=== PATIENT | male | born 1950 | race Caucasian/White ===

== ENCOUNTER 2020-02-24 13:00 | Outpatient (REF) | payer MEDICARE, SELFPAY | END 2020-02-24 13:01 | disposition home or self-care (01) | LOC: HO.BBR 13:00 | PROVIDERS: Visit Provider Internal Medicine Hematology & Oncology | DX: D45 Polycythemia vera (principal) | CPT/HCPCS: 85018 ==

== ENCOUNTER 2020-03-27 08:40 | Outpatient (REF) | payer MEDICARE, SELFPAY | END 2020-03-27 08:41 | disposition home or self-care (01) | LOC: HO.BBR 08:40 | PROVIDERS: Visit Provider Internal Medicine Hematology & Oncology | DX: D45 Polycythemia vera (principal) | CPT/HCPCS: 36415; 85018; 99195 ==

== ENCOUNTER 2020-04-24 08:04 | Outpatient (REF) | payer MEDICARE, SELFPAY | END 2020-04-24 08:05 | disposition home or self-care (01) | LOC: HO.BBR 08:04 | PROVIDERS: Visit Provider Internal Medicine Hematology & Oncology | DX: D45 Polycythemia vera (principal) | CPT/HCPCS: 36415; 85018; 99195 ==

== ENCOUNTER 2020-05-22 08:08 | Outpatient (REF) | payer MEDICARE, SELFPAY | END 2020-05-22 08:09 | disposition home or self-care (01) | LOC: HO.BBR 08:08 | PROVIDERS: Visit Provider Internal Medicine Hematology & Oncology | DX: D45 Polycythemia vera (principal) | CPT/HCPCS: 85018 ==

== ENCOUNTER 2020-06-20 09:12 | Outpatient (REF) | payer MEDICARE, SELFPAY | END 2020-06-20 09:13 | disposition home or self-care (01) | LOC: HO.BBR 09:12 | PROVIDERS: Visit Provider Internal Medicine Hematology & Oncology | DX: D45 Polycythemia vera (principal) | CPT/HCPCS: 85014; 85018; 99195 ==

== ENCOUNTER 2020-07-18 09:01 | Outpatient (REF) | payer MEDICARE, SELFPAY | END 2020-07-18 09:02 | disposition home or self-care (01) | LOC: HO.BBR 09:01 | PROVIDERS: Visit Provider Internal Medicine Hematology & Oncology | DX: D45 Polycythemia vera (principal) | CPT/HCPCS: 36415; 85018; 99195 ==

== ENCOUNTER 2020-08-15 09:18 | Outpatient (REF) | payer MEDICARE, SELFPAY | END 2020-08-15 09:19 | disposition home or self-care (01) | LOC: HO.BBR 09:18 | PROVIDERS: Visit Provider Internal Medicine Hematology & Oncology | DX: D45 Polycythemia vera (principal) | CPT/HCPCS: 36415; 85018 ==

== ENCOUNTER 2020-09-11 08:55 | Outpatient (REF) | payer MEDICARE, SELFPAY | END 2020-09-11 08:56 | disposition home or self-care (01) | LOC: HO.BBR 08:55 | PROVIDERS: Visit Provider Internal Medicine Hematology & Oncology | DX: D45 Polycythemia vera (principal) | CPT/HCPCS: 85014; 85018; 99195 ==

== ENCOUNTER 2020-10-10 09:07 | Outpatient (REF) | payer MEDICARE, SELFPAY | END 2020-10-10 09:08 | disposition home or self-care (01) | LOC: HO.BBR 09:07 | PROVIDERS: Visit Provider Internal Medicine Hematology & Oncology | DX: D45 Polycythemia vera (principal) | CPT/HCPCS: 85018; 99195 ==

== ENCOUNTER 2020-11-08 09:03 | Outpatient (REF) | payer MEDICARE, SELFPAY | END 2020-11-08 09:04 | disposition home or self-care (01) | LOC: HO.BBR 09:03 | PROVIDERS: Visit Provider Internal Medicine Hematology & Oncology | DX: D45 Polycythemia vera (principal) | CPT/HCPCS: 85014; 85018; 99195 ==

== ENCOUNTER 2020-12-07 09:08 | Outpatient (REF) | payer MEDICARE, SELFPAY | END 2020-12-07 09:09 | disposition home or self-care (01) | LOC: HO.BBR 09:08 | PROVIDERS: Visit Provider Internal Medicine Hematology & Oncology | DX: D45 Polycythemia vera (principal) | CPT/HCPCS: 85018; 99195 ==

== ENCOUNTER 2021-01-04 09:58 | Outpatient (REF) | payer MEDICARE, SELFPAY | END 2021-01-04 09:59 | disposition home or self-care (01) | LOC: HO.BBR 09:58 | PROVIDERS: Visit Provider Internal Medicine Hematology & Oncology | DX: D45 Polycythemia vera (principal) | CPT/HCPCS: 85018; 99195 ==

== ENCOUNTER 2021-02-14 08:58 | Outpatient (REF) | payer MEDICARE, SELFPAY | END 2021-02-14 08:59 | disposition home or self-care (01) | LOC: HO.BBR 08:58 | PROVIDERS: Visit Provider Internal Medicine Hematology & Oncology | DX: Z13.89 Encounter for screening for other disorder (principal) ==

== ENCOUNTER 2021-02-15 11:55 | Outpatient (REF) | payer MEDICARE, SELFPAY | END 2021-02-15 11:56 | disposition home or self-care (01) | LOC: HO.BBR 11:55 | PROVIDERS: Visit Provider Internal Medicine Hematology & Oncology | DX: D45 Polycythemia vera (principal) | CPT/HCPCS: 85018; 99195 ==

== ENCOUNTER 2021-03-15 10:01 | Outpatient (REF) | payer MEDICARE, SELFPAY | END 2021-03-15 10:02 | disposition home or self-care (01) | LOC: HO.BBR 10:01 | PROVIDERS: Visit Provider Internal Medicine Hematology & Oncology | DX: D45 Polycythemia vera (principal) | CPT/HCPCS: 85014; 85018; 99195 ==

== ENCOUNTER 2021-04-12 09:54 | Outpatient (REF) | payer MEDICARE, SELFPAY | END 2021-04-12 09:55 | disposition home or self-care (01) | LOC: HO.BBR 09:54 | PROVIDERS: Visit Provider Internal Medicine Hematology & Oncology | DX: D45 Polycythemia vera (principal) | CPT/HCPCS: 85018; 99195 ==

== ENCOUNTER 2021-05-10 10:04 | Outpatient (REF) | payer MEDICARE, SELFPAY ==
[2021-05-10 10:24] LABS: MANUAL DIFF FLAG NO
[2021-05-10 10:26] LABS: Basophils Absolute Auto 0.1 X10*3/uL (0.0-0.2); Basophils Percent Auto 1.1 % (0-2); Eosinophils Absolute Auto 0.2 X10*3/uL (0.0-0.4); Hematocrit 50.3 % (42.0-52.0); Hemoglobin 16.6 g/dl (14.0-18.0); Imm Gran Abs Auto 0.02 X10*3/uL (0.00-0.03); Imm Gran Pct Auto 0.3 % (0.0-0.4); Lymphocytes Absolute Auto 2.5 X10*3/uL (1.2-4.9); Lymphocytes Percent Auto 34.8 % (20-40); Mean Corpuscular Hemoglobin 25.7 pg (27.0-33.0); Mean Platelet Volume 9.3 fL (9.4-12.4); Neutrophils Absolute Auto 3.3 x10*3/uL (2.0-8.3); Neutrophils Percent Auto 46.8 % (45-73); Platelet Count 293 X10*3/uL (160-400); Red Blood Count 6.45 X10*6/uL (4.60-5.80); Red Cell Distribution Width 16.9 % (11.0-16.0); White Blood Count 7.1 X10*3/uL (4.8-10.8)
[2021-05-10 10:47] LABS: Iron 38 mcg/dL (45-160); Percent Iron Saturation 9 % (15-50); Total Iron Binding Capacity 425 mcg/dL (228-428); Unsaturated Iron Binding 387 ug/dL
[2021-05-10 11:07] LABS: Ferritin 17 ng/mL (20-250)
== END 2021-05-10 10:05 | disposition home or self-care (01) ==
LOC: HO.BBR 10:04
PROVIDERS: Visit Provider Internal Medicine Hematology & Oncology
DX: D45 Polycythemia vera (principal)
CPT/HCPCS: 36415; 82728; 83540; 85018; 85025; 99195

== ENCOUNTER 2021-06-08 08:57 | Outpatient (REF) | payer MEDICARE, SELFPAY | END 2021-06-08 08:58 | disposition home or self-care (01) | LOC: HO.BBR 08:57 | PROVIDERS: Visit Provider Internal Medicine Hematology & Oncology | DX: D45 Polycythemia vera (principal) | CPT/HCPCS: 85018; 99195 ==

== ENCOUNTER 2021-07-06 13:42 | Outpatient (REF) | payer MEDICARE, SELFPAY | END 2021-07-06 13:43 | disposition home or self-care (01) | LOC: HO.BBR 13:42 | PROVIDERS: Visit Provider Internal Medicine Hematology & Oncology | DX: D45 Polycythemia vera (principal) | CPT/HCPCS: 85018; 99195 ==

== ENCOUNTER 2021-08-03 08:58 | Outpatient (REF) | payer MEDICARE, SELFPAY | END 2021-08-03 08:59 | disposition home or self-care (01) | LOC: HO.BBR 08:58 | PROVIDERS: Visit Provider Internal Medicine Hematology & Oncology | DX: D45 Polycythemia vera (principal) | CPT/HCPCS: 85018; 99195 ==

== ENCOUNTER 2021-08-31 09:58 | Outpatient (REF) | payer MEDICARE, SELFPAY | END 2021-08-31 09:59 | disposition home or self-care (01) | LOC: HO.BBR 09:58 | PROVIDERS: Visit Provider Internal Medicine Hematology & Oncology | DX: D45 Polycythemia vera (principal) | CPT/HCPCS: 85018; 99195 ==

== ENCOUNTER 2021-09-28 14:01 | Outpatient (REF) | payer MEDICARE, SELFPAY | END 2021-09-28 14:02 | disposition home or self-care (01) | LOC: HO.BBR 14:01 | PROVIDERS: Visit Provider Internal Medicine Hematology & Oncology | DX: D45 Polycythemia vera (principal) | CPT/HCPCS: 85018 ==

== ENCOUNTER 2021-10-30 13:52 | Outpatient (REF) | payer MEDICARE, SELFPAY | END 2021-10-30 13:53 | disposition home or self-care (01) | LOC: HO.BBR 13:52 | PROVIDERS: Visit Provider Internal Medicine Hematology & Oncology | DX: D45 Polycythemia vera (principal) | CPT/HCPCS: 85018; 99195 ==

== ENCOUNTER 2021-11-28 08:08 | Outpatient (REF) | payer MEDICARE, SELFPAY | END 2021-11-28 08:09 | disposition home or self-care (01) | LOC: HO.BBR 08:08 | PROVIDERS: Visit Provider Internal Medicine Hematology & Oncology | DX: D45 Polycythemia vera (principal) | CPT/HCPCS: 85018; 99195 ==

== ENCOUNTER 2022-01-02 08:46 | Outpatient (REF) | payer MEDICARE, SELFPAY | END 2022-01-02 08:47 | disposition home or self-care (01) | LOC: HO.BBR 08:46 | PROVIDERS: Visit Provider Internal Medicine Hematology & Oncology | DX: D45 Polycythemia vera (principal) | CPT/HCPCS: 85014; 85018; 99195 ==

== ENCOUNTER 2022-01-30 09:05 | Outpatient (REF) | payer MEDICARE, SELFPAY | END 2022-01-30 09:06 | disposition home or self-care (01) | LOC: HO.BBR 09:05 | PROVIDERS: Visit Provider Internal Medicine Hematology & Oncology | DX: D45 Polycythemia vera (principal) | CPT/HCPCS: 85014; 85018; 99195 ==

== ENCOUNTER 2022-02-27 09:00 | Outpatient (REF) | payer MEDICARE, SELFPAY | END 2022-02-27 09:01 | disposition home or self-care (01) | LOC: HO.BBR 09:00 | PROVIDERS: Visit Provider Internal Medicine Hematology & Oncology | DX: D45 Polycythemia vera (principal) | CPT/HCPCS: 85018 ==

== ENCOUNTER 2022-03-27 08:45 | Outpatient (REF) | payer MEDICARE, SELFPAY | END 2022-03-27 08:46 | disposition home or self-care (01) | LOC: HO.BBR 08:45 | PROVIDERS: Visit Provider Internal Medicine Hematology & Oncology | DX: D45 Polycythemia vera (principal) | CPT/HCPCS: 85014; 85018; 99195 ==

== ENCOUNTER 2022-04-22 09:43 | Outpatient (REF) | payer MEDICARE, SELFPAY | END 2022-04-22 09:44 | disposition home or self-care (01) | LOC: HO.BBR 09:43 | PROVIDERS: Visit Provider Internal Medicine Hematology & Oncology | DX: D45 Polycythemia vera (principal) | CPT/HCPCS: 85014; 85018; 99195 ==

== ENCOUNTER 2022-05-21 09:50 | Outpatient (REF) | payer MEDICARE, SELFPAY | END 2022-05-21 09:51 | disposition home or self-care (01) | LOC: HO.BBR 09:50 | PROVIDERS: Visit Provider Internal Medicine Hematology & Oncology | DX: D45 Polycythemia vera (principal) | CPT/HCPCS: 85018; 99195 ==

== ENCOUNTER 2022-06-18 08:48 | Outpatient (REF) | payer MEDICARE, SELFPAY | END 2022-06-18 08:49 | disposition home or self-care (01) | LOC: HO.BBR 08:48 | PROVIDERS: Visit Provider Internal Medicine Hematology & Oncology | DX: D45 Polycythemia vera (principal) | CPT/HCPCS: 85018; 99195 ==

== ENCOUNTER 2022-07-23 08:28 | Outpatient (REF) | payer MEDICARE, SELFPAY | END 2022-07-23 08:29 | disposition home or self-care (01) | LOC: HO.BBR 08:28 | PROVIDERS: Visit Provider Internal Medicine Hematology & Oncology | DX: D45 Polycythemia vera (principal) | CPT/HCPCS: 85018; 99195 ==

== ENCOUNTER 2022-08-20 09:05 | Outpatient (REF) | payer MEDICARE, SELFPAY | END 2022-08-20 09:06 | disposition home or self-care (01) | LOC: HO.BBR 09:05 | PROVIDERS: Visit Provider Internal Medicine Hematology & Oncology | DX: D45 Polycythemia vera (principal) | CPT/HCPCS: 85018; 99195 ==

== ENCOUNTER 2022-09-24 08:55 | Outpatient (REF) | payer MEDICARE, SELFPAY | END 2022-09-24 08:56 | disposition home or self-care (01) | LOC: HO.BBR 08:55 | PROVIDERS: Visit Provider Internal Medicine Hematology & Oncology | DX: D45 Polycythemia vera (principal) | CPT/HCPCS: 85018; 99195 ==

== ENCOUNTER 2022-10-22 09:00 | Outpatient (REF) | payer MEDICARE, SELFPAY | END 2022-10-22 09:01 | disposition home or self-care (01) | LOC: HO.BBR 09:00 | PROVIDERS: Visit Provider Internal Medicine Hematology & Oncology | DX: D45 Polycythemia vera (principal) | CPT/HCPCS: 85018; 99195 ==

== ENCOUNTER 2022-11-26 09:03 | Outpatient (REF) | payer MEDICARE, SELFPAY | END 2022-11-26 09:04 | disposition home or self-care (01) | LOC: HO.BBR 09:03 | PROVIDERS: Visit Provider Internal Medicine Hematology & Oncology | DX: D45 Polycythemia vera (principal) | CPT/HCPCS: 85014; 85018; 99195 ==

== ENCOUNTER 2022-12-24 09:37 | Outpatient (REF) | payer MEDICARE, SELFPAY | END 2022-12-24 09:38 | disposition home or self-care (01) | LOC: HO.BBR 09:37 | PROVIDERS: Visit Provider Internal Medicine Hematology & Oncology | DX: D45 Polycythemia vera (principal) | CPT/HCPCS: 85018; 99195 ==

== ENCOUNTER 2023-01-21 08:02 | Outpatient (REF) | payer MEDICARE, SELFPAY | END 2023-01-21 08:03 | disposition home or self-care (01) | LOC: HO.BBR 08:02 | PROVIDERS: Visit Provider Internal Medicine Hematology & Oncology | DX: D45 Polycythemia vera (principal) | CPT/HCPCS: 85018; 99195 ==

== ENCOUNTER 2023-02-19 10:49 | Outpatient (REF) | payer MEDICARE, SELFPAY | END 2023-02-19 10:50 | disposition home or self-care (01) | LOC: HO.BBR 10:49 | PROVIDERS: Visit Provider Internal Medicine Hematology & Oncology | DX: D45 Polycythemia vera (principal) | CPT/HCPCS: 85018; 99195 ==

== ENCOUNTER 2023-03-20 09:16 | Outpatient (REF) | payer MEDICARE, SELFPAY | END 2023-03-20 09:17 | disposition home or self-care (01) | LOC: HO.BBR 09:16 | PROVIDERS: Visit Provider Internal Medicine Hematology & Oncology | DX: D45 Polycythemia vera (principal) | CPT/HCPCS: 85014; 85018; 99195 ==

== ENCOUNTER 2023-04-17 10:01 | Outpatient (REF) | payer MEDICARE, SELFPAY | END 2023-04-17 10:02 | disposition home or self-care (01) | LOC: HO.BBR 10:01 | PROVIDERS: Visit Provider Internal Medicine Hematology & Oncology | DX: D45 Polycythemia vera (principal) | CPT/HCPCS: 85014; 85018; 99195 ==

== ENCOUNTER 2023-05-15 08:53 | Outpatient (REF) | payer MEDICARE, SELFPAY | END 2023-05-15 08:54 | disposition home or self-care (01) | LOC: HO.BBR 08:53 | PROVIDERS: Visit Provider Internal Medicine Hematology & Oncology | DX: D45 Polycythemia vera (principal) | CPT/HCPCS: 85018 ==

== ENCOUNTER 2023-06-12 08:56 | Outpatient (REF) | payer MEDICARE, SELFPAY | END 2023-06-12 08:57 | disposition home or self-care (01) | LOC: HO.BBR 08:56 | PROVIDERS: Visit Provider Internal Medicine Hematology & Oncology | DX: D45 Polycythemia vera (principal) | CPT/HCPCS: 85014; 85018; 99195 ==

== ENCOUNTER 2023-07-10 08:46 | Outpatient (REF) | payer MEDICARE, SELFPAY | END 2023-07-10 08:47 | disposition home or self-care (01) | LOC: HO.BBR 08:46 | PROVIDERS: Visit Provider Internal Medicine Hematology & Oncology | DX: D45 Polycythemia vera (principal) | CPT/HCPCS: 85018 ==

== ENCOUNTER 2023-08-07 09:43 | Outpatient (REF) | payer MEDICARE, SELFPAY | END 2023-08-07 09:44 | disposition home or self-care (01) | LOC: HO.BBR 09:43 | PROVIDERS: Visit Provider Internal Medicine Hematology & Oncology | DX: D45 Polycythemia vera (principal) | CPT/HCPCS: 85014; 85018; 99195 ==

== ENCOUNTER 2023-10-02 10:05 | Outpatient (REF) | payer MEDICARE, SELFPAY | END 2023-10-02 10:06 | disposition home or self-care (01) | LOC: HO.BBR 10:05 | PROVIDERS: Visit Provider Internal Medicine Hematology & Oncology | DX: D45 Polycythemia vera (principal) | CPT/HCPCS: 85014; 85018; 99195 ==

== ENCOUNTER 2023-11-26 09:01 | Outpatient (REF) | payer MEDICARE, SELFPAY | END 2023-11-26 09:02 | disposition home or self-care (01) | LOC: HO.BBR 09:01 | PROVIDERS: Visit Provider Internal Medicine Hematology & Oncology | DX: D45 Polycythemia vera (principal) | CPT/HCPCS: 85018 ==

== ENCOUNTER 2024-01-22 08:47 | Outpatient (REF) | payer MEDICARE, SELFPAY | END 2024-01-22 08:48 | disposition home or self-care (01) | LOC: HO.BBR 08:47 | PROVIDERS: Visit Provider Internal Medicine Hematology & Oncology | DX: D45 Polycythemia vera (principal) | CPT/HCPCS: 85014; 85018; 99195 ==

== ENCOUNTER 2024-03-18 08:54 | Outpatient (REF) | payer MEDICARE, SELFPAY | END 2024-03-18 08:55 | disposition home or self-care (01) | LOC: HO.BBR 08:54 | PROVIDERS: Visit Provider Internal Medicine Hematology & Oncology | DX: D45 Polycythemia vera (principal) | CPT/HCPCS: 85018; 99195 ==

== ENCOUNTER 2024-05-13 08:40 | Outpatient (REF) | payer MEDICARE, SELFPAY ==
--- OUTSIDE RECORDS SUMMARY | 2024-05-13 08:56 | XMS_ITS ---
Author Name [facility]ISP Organization Unknown Results Test Name/Text Value Interpretation Date Range Source Service [facility] XXX-Imp Cepheid GeneXpert (RT-PCR) [facility] Normal [id number] [facility] FLUBV RNA Nph Ql MILAD+non-probe NEGATIVE Normal [id number] [facility] RSV RNA Nph Ql MILAD+non-probe NEGATIVE Normal [id number] [facility] FLUAV RNA Nph Ql MILAD+non-probe NEGATIVE Normal [id number] [facility] CREAT SERPL MCNC 1.2mg/dL Normal [id number] 0.7 - 1.3 [facility] CALCIUM SERPL MCNC 9.1mg/dL Normal [id number] 8.4 - 10.2 [facility] SODIUM SERPL SCNC 137mmol/L Normal [id number] 135 - 145 [facility] ANION GAP SERPL SCNC 10mmol/L Normal [id number] 5 - 14 [facility] Glomerular filtration rate/1.73 sq M. predicted 64 Normal [id number] 60 - [facility] HCO3 SER SCNC 26mmol/L Normal [id number] 24 - 32 [facility] GLUCOSE SERPL MCNC 181mg/dL Normal [id number] 70 - 199 [facility] BUN SERPL MCNC 14mg/dL Normal [id number] 9 - 20 [facility] CHLORIDE SERPL SCNC 101mmol/L Normal [id number] 98 - 107 [facility] POTASSIUM SERPL SCNC 3.6mmol/L Normal [id number] 3.5 - 5.1 [facility] Troponin I SerPl HS-mCnc 7ng/L Normal [id number] 0 - 20 [facility] NUCLEATED RBC 0% Normal [id number] 0 - 1 CTT HS LYMPHOCYTES NO. BLD AUTO 1.9K/uL Normal [id number] 1 - 3.2 [facility] EOSINOPHIL NO. BLD AUTO 0.2K/uL Normal [id number] 0 - 0.5 [facility] MONOCYTES NFR BLD AUTO 17% Above high normal [id number] 2 - 12 [facility] IMMATURE GRANULOCYTE, ABSOLUTE 0.02k/uL Normal [id number] - 0.1 [facility] LYMPHOCYTES NFR BLD AUTO 32.5% Normal [id number] 20 - 48 [facility] EOSINOPHIL NFR BLD AUTO 3.3% Normal [id number] 0 - 6 [facility] NEUTROPHILS NO. BLD AUTO 2.7K/uL Normal [id number] 1.8 - 7.8 [facility] BASOPHILS NFR BLD AUTO 0.5% Normal [id number] 0 - 2 [facility] MONOCYTES NO. BLD AUTO 1K/uL Above high normal [id number] 0 - 0.8 [facility] NEUTROPHILS NFR BLD AUTO 46.4% Normal [id number] 44 - 74 [facility] IMMATURE GRANULOCYTE, PERCENT 0.3% Normal [id number] 0 - 1 [facility] BASOPHILS IN BLOOD BY AUTOMATED COUNT 0K/uL Normal [id number] 0 - 0.2 [facility] PLATELET NO. BLD AUTO 228K/uL Normal [id number] 150 - 450 [facility] RBC NO. BLD AUTO 6.3M/uL Above high normal [id number] 4. 7 - 6 [facility] MCH RBC QN AUTO 25.7pg Normal [id number] 25 - 33 [facility] MCHC RBC AUTO MCNC 32g/dL Normal [id number] 32 - 36 [facility] HGB BLD MCNC 16.2g/dL Normal [id number] 13.5 - 18 [facility] WBC NO. BLD AUTO 5.8K/uL Normal [id number] 4 - 10.5 [facility] MCV RBC AUTO 80.3fL Normal [id number] 78 - 100 [facility] PMV BLD AUTO 9.4fL Normal [id number] 7.4 - 11.4 [facility] RDW RBC AUTO RTO 17.9% Above high normal [id number] 12.1 - 17.7 [facility] HCT VFR BLD AUTO 50.6% Normal [id number] 40 - 54 [facility] SPECIMEN SOURCE XXX NASOPHARYNGEAL Normal [id number] [facility] History of Medication Use Medication Directions Dispensed Refills Start Date End Date Status glucose blood (FREESTYLE LITE) test strip Test one to two times daily as directed 4 active amiodarone (PACERONE) 100 MG tablet 4 active metoprolol succinate (TOPROL-XL) 24 hr tablet 100 mg metoprolol succinate ER 100 mg tablet,extended release 24 hr 4 active benzonatate (TESSALON) capsule 100 mg 100 mg, Oral, Once, On 09/28/23 at 0830, For 1 doseSwallow Whole?DO NOT CHEW 4 completed Cholecalciferol (Vitamin D) 50 MCG (1999 UT) CAPS Take 1 capsule by mouth 2 (two) times a day. 4 active hydroCHLOROthiazide (HYDRODIURIL) tablet 25 mg TAKE ONE TABLET BY MOUTH ONCE DAILY 4 active aspirin 81 MG chewable tablet Chew 1 tablet (81 mg total) by mouth daily. 4 active tiZANidine (ZANAFLEX) 2 MG tablet Take 1-2 tablets 3 times per day prn 3 active methocarbamol (ROBAXIN) 750 MG tablet Take 750 mg by mouth 3 (three) times a day as needed. 3 aborted hydrochlorothiazide (HYDRODIURIL) 25 MG tablet 2 active methocarbamol (ROBAXIN) 750 MG tablet Take 750 mg by mouth 3 (three) times a day as needed. 3 aborted acetaminophen (TYLENOL) 650 MG CR tablet Take 650 mg by mouth 3 times daily (every 8 hours) as needed. 2 active meloxicam (MOBIC) 15 MG tablet Take 15 mg by mouth daily. 3 active amLODIPine (NORVASC) 10 MG tablet amlodipine 10 mg tablet 2 active meloxicam (MOBIC) 15 MG tablet 2 active apixaban (ELIQUIS) 5 MG tablet Eliquis 5 mg tablet 2 active Problems Problem Status Onset Date Problem Type Date of Resolution Source Atrial fibrillation active 2021-06-19 ProblemAct [facility] COVID-19 active 2022-04-23 ProblemAct [facility] Polycythemia vera active 2019-09-16 ProblemAct [facility] Type 2 diabetes mellitus without complication, without long-term current use of insulin active 2022-07-09 [facility] Status post ankle fusion active 2021-09-03 ProblemAct [facility] Osteoarthritis active ProblemAct [facility] Stenosis of intervertebral foramina active 2022-11-15 ProblemAct [facility] Viral URI active EncounterDiagnosisAct [facility] Essential hypertension active 2021-08-14 ProblemAct [facility] Lumbosacral spondylosis with radiculopathy active 2022-04-08 ProblemAct [facility] Immunizations Vaccine Date Source Lot Number Status Covid-19 (Fashion Project) Dilution Required 07/03/2020 [facility] completed Influenza Quad (Fluad) 0.5 m L >65Yrs (A&B ADJUVANTED) 02/23/2021 [facility] [id number] completed Pneumococcal Polysaccharide PPSV23 10/31/2012 [facility] J [id number] completed Influenza Quad (Fluad) 0.5 m L >65Yrs (A&B ADJUVANTED) 02/28/2022 [facility] [id number] completed Covid-19 (Fashion Project) Dilution Required 07/30/2020 [facility] completed
== END 2024-05-13 08:41 | disposition home or self-care (01) ==
LOC: HO.BBR 08:40
PROVIDERS: Visit Provider Internal Medicine Hematology & Oncology
DX: D45 Polycythemia vera (principal)
CPT/HCPCS: 85018; 99195

== ENCOUNTER 2024-07-07 09:01 | Outpatient (REF) | payer MEDICARE, SELFPAY ==
--- OUTSIDE RECORDS SUMMARY | 2024-07-07 09:50 | XMS_ITS | Clinical Summary ---
Author Organization [facility] Address [address] [place] [address] Care Team Providers Care Senior Security Engineer Name Role Phone Tyler Marin APRN Primary Care Provider U navailable Allergies Active Allergy Reactions Criticality Noted Date Comments Gabapentin Anxiety Medium 02/28/2022 tremulous Medications Medication Sig Dispensed Refills Start Date End Date Status metoprolol succinate (TOPROL-XL) 24 hr tablet 100 mg metoprolol succinate ER 100 mg tablet,extended release 24 hr 0 Active glucose blood (FREESTYLE LITE) test stripIndications:Ty pe 2 diabetes mellitus without complication, without long-term current use of insulin ([facility]) Test one to two times daily as directed 60 each 5 08/04/2023 Active hydroCHLOROthiazide (HYDRODIURIL) tablet 25 mg TAKE ONE TABLET BY MOUTH ONCE DAILY 90 tablet 1 09/13/2023 Active amiodarone (PACERONE) 100 MG tablet 0 08/11/2023 Active aspirin 81 MG chewable tablet Chew 1 tablet (81 mg total) by mouth daily. 0 Active Cholecalciferol (Vitamin D) 50 MCG (2000 UT) CAPS Take 1 capsule by mouth 2 (two) times a day. 0 Active benzonatate (Tessalon Perles) 100 MG capsule Take 1 capsule (100 mg total) by mouth 3 (three) times a day as needed for cough. 20 capsule 0 09/28/2023 Active Active Problems Problem Noted Date Diagnosed Date Stenosis of intervertebral foramina 11/15/2022 Type 2 diabetes mellitus wit hout complication, without long-term current use of insulin 07/09/2022 COVID-19 04/23/2022 Lumbosacral spondylosis with radiculopathy 04/08 Status post ankle fusion 09/03/2021 Essential hypertension 08/14/2021 Atrial fibrillation 06/19/2021 Overview: Dx 06/19/21 Polycythemia vera 09/16/2019 Osteoarthritis Resolved Problems Problem Noted Date Diagnosed Date Resolved Date Carotid artery stenosis 07/04 Overview: mild 2021 Immunizations Name Administration Dates Next Due Covid-19 (Pfizer) Dilution Required 07/30/2020,0 07/03/2020 Influenza Quad (Fluad) 0.5 mL >65Yrs (AIIV4) ,02/23/2021 Pneumococcal Polysaccharide PPSV23 10/31/2012 Family History Medical History Relation Name Comments Hypertension Brother Kang No Sig Med Hx Daughter Yanira Other Father 97 and healthy Cancer Maternal Cousin breast cance r Dementia Mother 97 Cancer Sister 1 Martha breast cancer Supraventricular tachycardia Sister 2 Urmila Relation Name Status Comments Brother Kang Alive Daughter Yanira Alive Father Alive Maternal Cousin Mother 97 Sister 1 Martha Alive Sister 2 Urmila Alive Social History Tobacco Use Types Packs/Day Years Used Date Smoking Tobacco: Former Cigarettes 0.3 1 Smokeless Tobacco: Never Alcohol Use Standard Drinks/Week Comments Yes 3 (1 standard drink = 0.6 oz pur e alcohol) Sex and Gender Information Value Date Recorded Sex Assigned at Male 08/22/2020 9:30 AM EDT Gender Identity Male 08/22/2020 9:30 AM EDT Sexual Orientation Straight 08/22/2020 9: 30 AM EDT Job Start Date Occupation Industry Not on file Not on file Not on file Last Filed Vital Signs Vital Sign Reading Time Taken Comments Blood Pressure 144/80 01/30/2024 10:08 AM EDT Pulse 75 01/30/2024 10:08 AM EDT Temperature 36.4 ??C (97.5 ??F) 01/30/2024 10:08 AM E DT Respiratory Rate 18 09/28/2023 7:16 AM EDT Oxygen Saturation 95% 01/30/2024 10:08 AM EDT Inhaled Oxygen Concentration - - Weight 123.4 kg (272 lb) 01/30/2024 10:08 AM EDT Height 185.4 cm (6' 1 ) 09/23/2023 9:59 AM EDT Body Mass Index 35.89 09/23/2023 9:59 AM EDT Plan of Treatment Health Maintenance Due Date Last Done Comments Hepatitis C Screening 1950 Diabetes: Eye Exam (No Retinopathy) 09/10/1969 Diabetes: Foot Exam 09/10/1969 Diabetes: Microalbumin Test 09/10/1969 DTap / Tdap / Td (1 - Tdap) 09/10/1970 Shingrix-Zoster Vaccine (1 of 2) 09/10/1970 Colon Cancer Screening (Colonoscopy) 09/10/1996 Pneumococcal Vaccine (2 of 2 - PCV) 10/31/2013 10/31/2012 Abdominal Aortic Aneurysm (AAA) Screening 09/10/2016 COVID-19 Vaccine (3 - Pfizer risk series) 08/27/2020 07/30/2020, 07/03/2020 Influenza Vaccine (#1) 2024 02/28/2022, 2020 BMI Counseling 03/21/2024 03/21/2023, 02/03, 06/19/2021, Additional history exists Depression Screening 03/21/2024 03/21/2023, 03/21/2023, 02/28/2022, Additional history exists Fall Risk Assessment 03/21/2024 03/21/2023, 03/21/2023, 02/28/2022, Additional history exists Preventative Health Evaluation 03/21/2024 03/21/2023, 06/03/2022, 02/28/2022 Hemoglobin A1C Due 03/25/2024 09/23/2023, 0 12/10/2022, 09/09/2022, Additional history exists RSV Adult > 60+ Yrs or (1 - 1-dose 75+ series) 09/10/2026 Hepatitis B Vaccines Aged Out No long er eligible based on patient's age to complete this topic RSV Ped < 20 months Aged Out No longe r eligible based on patient's age to complete this topic Medical Devices Implanted Type Area Manager Civil Device Identifier Shelf Expiration Date Model / Serial / Lot Accufill Injectable Bone Substitute Material 3cc - [id number] - [id number] Implanted:Qty: 1 on 12/26/2016 by Ej De Leon DPM at [facility] and Med Right: Foot [employer] 10/02/2018 [id number] / / [id number] 1 Kit Sonicanchor 2.5x10mm\Force Fiber #2-0\C-2 - [id number] - [id number] Implanted:Qty: 2 on 12/26/2016 by Ej De Leon DPM at [facility] and [facility] Right: Foot [employer] 07/11/2017 [id number] / / [id number] Care Teams Senior Security Engineer Relationship Specialty Start Date End Date Tyler Marin APRN PCP - General Nurse Practitioner 02/02/24
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
--- OUTSIDE RECORDS SUMMARY | 2024-07-07 09:50 | XMS_ITS | Encounter Summary ---
Author Organization [facility] Address [address] [id number] Care Team Providers Care Motion Pictures Cartoonist Name Role Phone Brennan Pearson MD Primary Care Provider Jean Carlos Castanon Unavailable Encounter Details Date Type Department Care Team (Late st Contact Info) Description 05/13/2022 Scanned Document [facility] [address] [facility] [address] [place] [address] Fabian Mayorga PA [address] [facility] [address] [place] [address] Social History Tobacco Use Types Packs/Day Years Used Date Smoking Tobacco: Unknown Sex and Gender Information Value Date Recorded Sex Assigned at Not on file Gender Identity Not on file Sexual Orientation Not on file documented as of this encounter Plan of Treatment Not on file documented as of this encounter Visit Diagnoses Not on filedocumented in this encounter Care Teams Motion Pictures Cartoonist Relationship Specialty Start Date End Date Brennan Pearson MD [address] [place] [address] [place] [address] PCP - General Family Medicine 04/08/22 Jean Carlos Castanon PA [address] [place] [address] [address] [place] [address] 05/28/22 Dr. David Travis Lift Builder Whole 04/08/22 documented as of this encounter
--- OUTSIDE RECORDS SUMMARY | 2024-07-07 09:50 | XMS_ITS | Encounter Summary ---
Author Organization [facility] Address [address] [id number] Care Team Providers Care Ferryboat Operator Name Role Phone Brennan Pearson MD Primary Care Provider Jean Carlos Castanon Unavailable Encounter Details Date Type Department Care Team (Late st Contact Info) Description 07/16/2022 Telephone [facility] [address] [facility] [address] [place] [address] Swati Schilling PA-C [address] [facility] [address] [place] [address] Social History Tobacco Use Types Packs/Day Years Used Date Smoking Tobacco: Unknown Sex and Gender Information Value Date Recorded Sex Assigned at Not on file Gender Identity Not on file Sexual Orientation Not on file documented as of this encounter Plan of Treatment Not on file documented as of this encounter Visit Diagnoses Not on filedocumented in this encounter Care Teams Ferryboat Operator Relationship Specialty Start Date End Date Brennan Pearson MD [address] [place] [address] [place] [address] PCP - General Family Medicine 04/08/22 Jean Carlos Castanon PA [address] [place] [address] [address] [place] [address] 05/28/22 Dr. David Travis Ultrasound Supervisor 04/08/22 documented as of this encounter
--- OUTSIDE RECORDS SUMMARY | 2024-07-07 09:50 | XMS_ITS | Clinical Summary ---
Author Organization [facility] Address [address] [place] [address] Care Team Providers Care Plant Chief Name Role Phone Pcp, No Primary Care Provider Unavailabl e Social History Tobacco Use Types Packs/Day Years Used Date Smoking Tobacco: Never Assessed Sex and Gender Information Value Date Recorded Sex Assigned at Not on file Legal Sex Male 1:33 PM EST Gender Identity Not on file Sexual Orientation Not on file Last Filed Vital Signs Vital Sign Reading Time Taken Comments Blood Pressure - - Pulse - - Temperature - - Respiratory Rate - - Oxygen Saturation - - Inhaled Oxygen Concentration - - Weight 122.5 kg (270 lb) 05/25/2021 10:47 AM EST Height 185.4 cm (6' 1 ) 05/25/2021 10:47 AM EST Body Mass Index 35.62 05/25/2021 10:47 AM EST Plan of Treatment Health Maintenance Due Date Last Done Comments CT Colonography 1950 Colonoscopy 1950 Colorectal Cancer Screening 1950 FIT-DNA 1950 FIT 1950 FOBT 1950 Hepatitis C Screening 1950 Lipid Panel 1950 Sigmoidoscopy 1950 Medicare Annual Wellness Visit 09/10/1969 Tdap and Td Vaccines Adult 09/10/1970 Pneumococcal Vaccine: 50+ Ye ars (1 of 1 - PCV) 09/10/2001 Zoster Vaccines (1 of 2) 09/10/2001 Abdominal Aortic Aneurysm (A AA) Screen 09/10/2016 Fall Risk Screening 09/10/2016 COVID-19 Vaccine ( - 2023-2 5 season) 2024 Influenza Vaccine (#1) 2024 RSV 60+ (1 - 1-dose 75+ series) 09/10/2026 HIB Vaccines Aged Out No longer eligi [...] patient's age to complete this topic Meningococcal Vaccine Aged Out No bora asya eligible based on patient's age to complete this topic RSV <20 Months Aged Out No longer cynthia gible based on patient's age to complete this topic Insurance [employer]ICARE Care Teams Plant Chief Relationship Specialty Start Date End Date Pcp, No [place] [address] PCP - General 05/24/21
--- OUTSIDE RECORDS SUMMARY | 2024-07-07 09:50 | XMS_ITS | Encounter Summary ---
Author Organization [facility] Address [address] [place] [id number] Care Team Providers Care Director Franchise Sales Name Role Phone Pcp, No Primary Care Provider Unavailabl e Encounter Details Date Type Department Care Team (Late st Contact Info) Description 05/24/2021 [facility] [address], [place] [address] Social History Tobacco Use Types Packs/Day Years Used Date Smoking Tobacco: Never Assessed Sex and Gender Information Value Date Recorded Sex Assigned at Not on file Legal Sex Male 1:33 PM EST Gender Identity Not on file Sexual Orientation Not on file COVID-19 Exposure Response Date Recorded In the last month, have you been in contact with someone who was confirmed or suspected to have Coronavirus / COVID-19? No / Unsure 05/25/2021 10:29 AM EST documented as of this encounter Last Filed Vital Signs Vital Sign Reading Time Taken Comments Blood Pressure - - Pulse - - Temperature - - Respiratory Rate - - Oxygen Saturation - - Inhaled Oxygen Concentration - - Weight 122.5 kg (270 lb) 05/25/2021 10:47 AM EST Height 185.4 cm (6' 1 ) 05/25/2021 10:47 AM EST Body Mass Index 35.62 05/25/2021 10:47 AM EST documented in this encounter Plan of Treatment Not on file documented as of this encounter Visit Diagnoses Not on filedocumented in this encounter Care Teams Director Franchise Sales Relationship Specialty Start Date End Date Pcp, [place] [address] PCP - General 05/24/21 documented as of this encounter
--- OUTSIDE RECORDS SUMMARY | 2024-07-07 09:50 | XMS_ITS | Clinical Summary ---
Author Organization [facility] Address [address] [place] [address] Care Team Providers Care Associate Media Director Name Role Phone Brennan Pearson MD Primary Care Provider [phone] Jean Carlos Castanon Unavailable Allergies Active Allergy Reactions Criticality Noted Date Comments Gabapentin Anxiety Medium 02/28/2022 tremulous Medications Medication Sig Dispensed Refills Start Date End Date Status amLODIPine (NORVASC) 10 MG tablet amlodipine 10 mg tablet 03/31/2022 Active hydrochlorothiazide (HYDRODIURIL) 25 MG tablet 04/06/2022 Active apixaban (ELIQUIS) 5 MG tablet Eliquis 5 mg tablet Acti ve meloxicam (MOBIC) 15 MG tablet 03/25/2022 Active acetaminophen (TYLENOL) 650 MG CR tablet Take 650 mg by mouth 3 times daily (every 8 hours) as needed. Active tiZANidine (ZANAFLEX) 2 MG tabletIndications:L umbar disc herniation Take 1-2 tablets 3 times per day prn 30 tablet 07/05/2022 Active Active Problems Problem Noted Date Diagnosed Date Lumbosacral spondylosis with radiculopathy 04/08 Social History Tobacco Use Types Packs/Day Years Used Date Smoking Tobacco: Unknown Tobacco Cessation:Counseling Given: Not Answered Sex and Gender Information Value Date Recorded Sex Assigned at Not on file Gender Identity Not on file Sexual Orientation Not on file Last Filed Vital Signs Vital Sign Reading Time Taken Comments Blood Pressure 147/80 07/05/2022 1:14 PM EST Pulse 104 07/05/2022 1:14 PM EST Temperature 36.7 ??C (98.1 ??F) 07/05/2022 1:14 PM ES T Respiratory Rate 18 07/05/2022 1:14 PM EST Oxygen Saturation 92% 07/05/2022 1:14 PM EST Inhaled Oxygen Concentration - - Weight 122 kg (270 lb) 06/21/2022 2:00 PM EST Height 185.4 cm (6' 1 ) 06/21/2022 2:00 PM EST Body Mass Index 35.62 06/21/2022 2:00 PM EST Plan of Treatment Health Maintenance Due Date Last Done Comments Hepatitis C Virus Screening 1950 DTaP/Tdap/Td Vaccines (1 - Tdap) 09/10/1970 Colonoscopy 09/10/1996 Pneumococcal Vaccines 50+ (1 of 1 - PCV) 09/10/2001 Zoster (Shingles) Vaccine (1 of 2) 09/10/2001 Influenza Vaccine 12/04/2023 02/28/2022, 02/23/2021 COVID-19 Vaccine (3 - 2023-2 5 season) 2024 07/30/2020, 07/03/2020 RSV Vaccine 60 years and older and Patients (1 - 1-dose 75+ series) 09/10/2026 Hepatitis B Vaccines Aged Out No long er eligible based on patient's age to complete this topic Care Teams Associate Media Director Relationship Specialty Start Date End Date Brennan Pearson MD [address] [facility] [place] [address] PCP - General Family Medicine 04/08/22 Jean Carlos Castanon PA [address] [place] [address] [phone] [place] [address] 05/28/22 Dr. David Travis Grounds Cleaner 04/08/22
--- OUTSIDE RECORDS SUMMARY | 2024-07-07 09:50 | XMS_ITS | Data Portability ---
Author Organization [place] [facility], [facility] Office Address [address] [place] [address] Care Team Providers Care Internet Media Planner Name Role Phone ISSAC WRIGHT Primary Care Provider [phone] Assessment Encounter Date Assessment Date Assessment LastModified by Organization Details LastModified Time 06/10/2023 06/10/2023 Mr. Ho present s today for his first POV s/p L3-L5 XLIF on 05/19 He previously underwent right L3-4 and L4-5 endoscopic foraminotomies on in August 2022 but was burdened by persistent right anterolateral thigh and anterior jack pain. Today Mr. Ho is 3 weeks out form surgery and his lateral thigh and anterior jack pain are much improved, symptoms have persisted to an extent in his quads, he gets cramping and muscle spasms with longer periods of walking. His back burdens him with longer periods of standing, topical menthol and tylenol have been quite helpful. He plans to d/c tramadol and methocarbamol. On exam his LE strength is intact to his lower extremities, he still struggles with heel walking, toe walking and performing a single leg stance. His incisions are well healed. I would like for him to continue to maintain a walking regimen over the next few weeks. I explained I am encouraged by the improvement in his LE symptoms and suspect that with time and strengthening they will continue to dissipate. We will begin him on PT after his 6 week POV but I will send that script today so he may begin scheduling. We will see him back for his 6 week POV with 4 view lumbar xrays. He was in agreement with this plan and had all questions and concerns addressed. [email or web address] Not available 06/13/2023 12:50:13 07/01/2023 07/01/2023 Mr. Ho present s today 6 weeks out form his L3-L5 XLIF on 05/19/2022 He reports a setback after his week after beginning PT. Reports he had his eval on and has kept up with exercises daily but notes his pain and functional limitations have increased. Primary pain is anterior thighs bilaterally Right> Left worse with walking and standing. Also has peristent low back pain which bothers him at night and limits his sleep but also limits his walking and standing. Strength herbert he feels he is doing well, and he endorses some modest improvement in his walking tolerance. On exam today his strength is intact, he stands with good posture but struggles with heel walk, toe walk and single leg stance. He does endorse pain with thigh thrust bilaterally right worse than left. His xrays show intact and well placed fusion hardware unchanged from previous images. He finds tylenol effective but has not done well with tramadol or muscle relaxants, he also has not tolerated gabapentin in the past. I suggested he use topical anti-inflammatory cream for his low back and anterior thigh pain. I would also like him to dial back his physical therapy and overall activity level. This could be an instance of the patient doing too much too soon. We discussed the long road that has lead him here as well as the notable degree of deconditioning which has taken place over that time period. We will have him continue with PT, being sure to take rest days in between and avoid activities which trigger his symptoms. He will continue with tylenol and incorporate topical anti-inflammatori es. We will see him back [address] Fuentes for re-evaluation. He and his were in agreement with this plan and had all questions and concerns addressed. [email or web address] Not available 07/01/2023 15:37:58 08/19/2023 08/19/2023 3-month status post L3-5 XLIF He appears to have made very good progress. He still has remaining symptoms however I would suspect that he still has gains to be made over the next 3 6 or even 9 months. I will send him a referral to get into another physical therapy program 1 that relies more on functional improvements through lifting pushing pulling exercises. He felt his prior physical therapy was too passive. [email or web address] Not available 08/19/2023 10:46:38 11/18/2023 11/18/2023 Kavon presents today for his 6 month POV s/p L3-L5 XLIF posterior fusion this May. Kavon continues to deal with right anterior thigh pain, he reports PT only seemed to worsen these symtpoms, described as a tightness and spasm. He also has considerable low back pain, worse on the left and radiates bilaterally off of midline, he struggles sitting or standing for long periods. On exam his strength is grossly intact, he is non-tender overlying his incisions and the area of his hardware. He has no pain with straight leg raise or provocation of his SI joints. I would like to trial Kavon with lumbar facet injections caudal to his fusion construct. We could also consider hardware injections moving forward. We will have him dial back PT and continue to monitor right anterior thigh pain. We will see him back following his injection to discuss the efficacy and potential next steps, he was in agreement and had all questions and concerns addressed. [email or web address] Not available 11/19/2023 17:58:03 06/08/2024 06/08/2024 Kavon is a 73-year-old male presents today just over a year out from his L3-5 XLIF posterior fusion on 05/19/[address] Fuentes. He has been dealing with persistent right anterior thigh pain as well as diffuse low back pain. He participated in physical therapy which she felt worsened his thigh pain. We arranged for bilateral L5-S1 facet injections this December which she reports gave him greater than 50% relief of his low back pain. Follows up today reporting that his pain was much improved throughout much of the fall, he did have an accident on his tractor which sounds fairly traumatic but he notes that his back pain seem to be resolved in the aftermath. Today he notes insidious progression of low back pain over the last several months he describes this as a stiffness worse in the morning that can improve with movement throughout the day however he continues to be limited in bending and lifting. On exam today his lower extremity strength and sensation grossly intact. He has limited painful spinal range of motion. His x-rays show intact fusion hardware. Discussed with Kavon that given his response to previous injection some of his back pain does seem to be emanating from the L5-S1 space. He reports his pain can be as high as 10 out of 10 and he has functional limitations including limitations in longer periods of walking as well as bending and lifting. We discussed repeating bilateral L5-S1 facet injections. He was in agreement with this plan, will arrange those injections with [facility] [place] radiology and Kavon was instructed to arrange follow-up with our office approximately 2 weeks afterwards to discuss the efficacy of those injections. He was in agreement with this plan, had all questions and concerns addressed. [email or web address] Not available 06/09/2024 08:17:44 Plan of Treatment Reminders Order Date Submit Date Provider Last Modified By Organization Details Last Modified Time Details Appointments None recorded. Lab None recorded. Referral physical therapist referral 2023 024 [facility], [address], [place], [address], 4 09:41:04 Procedures facet joint injection , lumbar (PROC) - Bilateral L5-S1 [address] ([facility]), [address] [place], [address], 5 17:42:08 facet joint injection , lumbar (PROC) - Bilateral L5-S1 lumbar facet injection s 2023 024 [facility] ([facility]), [address] [place], [address], 4 09:20:45 Surgeries None recorded. Imaging None recorded. Medication Orders None recorded. Patient TargetsNo targets recorded. Patient Instructions Encounter Date Encounter Id Patient Instructions Last Modified By Organization Details Last Modified Time 08/19/2023 [id number] 3-month follow-u p with Magaly Juarez [email or web address] Not available 08/19/2023 10:46:40 Reason for Referral Physical Therapist Referral for Degeneration of lumbar intervertebral disc Low back pain, tightness anteiror thighs and buttocks Referring Physician: Magaly Juarez, Physician [facility], Encounter Date: 06/10/2023 Results Created Date Observation Date Name Description Value Unit Range Abnormal Flag Note LastModifiedBy Organization Detail LastModifiedTime 12/17/19 24 12/17/2023 fL guide d facet thera peuti c injec tion [facility] Pt Name : Anna HO 5 - Date: 1950 Sex: M Locati on : [facility] Visit: [id number] Admit Date: 2023 Date of Servic e: 2023 Exam : FL GUIDED FACET THERAP EUTIC INJECT ION Status : Final Order MD : MAGALY JUAREZ Ord Tel#:( [phone] CC Provid er:, ------ ------ ------ ------ ------ ------ ------ ------ ------ ------ ------ ------ ------ - ADDITI ONAL INDICA TION: Facet arthro sis FLUORO SCOPY TIME: 0.1 minute s CONSEN T: The proced ure was explai alvarado and all questi ons answer ed. Risks discus sed includ e allerg y and infect ion. Inform ed, writte n consen t was obtain ed. PROCED URE: Follow ing local infilt ration of the skin with 1 percen t lidoca ine, 22-gau ge spinal needle s were insert ed into the bilate ral L5-S1 facet joint( s) under fluoro scopic contro l. Spot films demons trate the locali zation . 80 mg methyl predni solone and 1 cc bupiva carey 0.25 percen t were inject ed at the joint( s). Pre-pr ocedur e and post proced ure pain scores were also record ed and are availa ble in the offici al medica l record . FINDIN GS: Fluoro scopic spot image demons trates facet joint arthro dangelo. REPORT SIGNED BY: ALL CHIRINOS 13:56: 31 [email or web address] [facility] [address], [place], [address], 12/24/2023 09:12:23 Result Notes None recorded. 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 Procedures Surgical History Date Name Laterality Status Provider Name and Address Organization Details Recorded Time 08/27/19 23 Orthopaedic Surgery completed Mauro Green [facility] 09/03/2022 09:20:01 08/27/19 23 Orthopaedic Surgery completed Emelia Lemon [facility] 09/17/2022 12:21:11 09/04/19 22 Orthopaedic Surgery completed Kateryna Zuniga [facility] 04/16/2022 11:14:03 05/05/19 17 Orthopaedic Surgery completed Kateryna Zuniga [facility] 04/16/2022 11:13:44 Imaging Results Imaging Date Name Status LastModified by Organiz ation Details LastModified Time 12/17/2023 fL guided facet therapeutic injection completed [email or web address] [facility] - [address], [address], 12/24/2023 09:12:23 Procedure Notes None recorded. Medical Equipment None Reported. Allergies Allergen ID Allergen Name Allergen Category Reaction Reaction Severity Criticality Documentation Date Start Date Code Code System Note Provider Name and Address Organization Details Recorded Time [id number] cyclobenz aprine medicatio n hallucina tions Not available Not available 08/19/2023 05761 RxNorm Kika sapp [facility] 4 09:56:30 Medications Name Sig Start Date Stop Date Status Note LastModified by Organization Details LastModified Time cyclobenzap rine 10 mg tablet TAKE ONE TABLET BY MOUTH THREE TIMES DAILY NEEDED active Not Available Not Available No t Available methocarbam ol 500 mg tablet Take 2 tablets 4 times a day by oral route. 2023 active Not Available Not Available Not Avai lable prednisone 10 mg tablet Take 3 tablets twice a day by oral route for 6 days. 10/29 completed Not Available Not Available Not Available tizanidine 2 mg tablet 07/23 completed Not Available Not Available Not Available trazodone 50 mg tablet 06/08 completed Not Available Not Available Not Available amiodarone 200 mg tablet Take 1 tablet every day by oral route. 08/18 completed Not Available Not Available Not Available metoprolol succinate ER 50 mg tablet,exte nded release 24 hr 08/18 completed Not Available Not Available Not Available meloxicam 15 mg tablet 09/17 completed Not Available Not Available Not Available Pacerone 400 mg tablet 02/06 completed Not Available Not Available Not Available metoprolol succinate ER 100 mg tablet,exte nded release 24 hr active Not Available Not Available Not Available digoxin 250 mcg (0.25 mg) tablet 10/29 completed Not Available Not Available Not Available tramadol 50 mg tablet TAKE ONE TABLET BY MOUTH EVERY SIX HOURS 06/08 completed Not Available Not Available Not Available etodolac ER 500 mg tablet,exte nded release 24 hr TAKE 1 TABLET BY MOUTH EVERY DAY 09/18 completed Not Available Not Available Not Available potassium chloride ER 20 mEq tablet,exte nded release(par t/cryst) active Not Available Not Available Not Available methocarbam ol 750 mg tablet 09/18 completed Not Available Not Available Not Available amlodipine 10 mg tablet 10/29 completed Not Available Not Available Not Available benzonatate 100 mg capsule 06/08 completed Not Available Not Available Not Available aspirin 81 mg chewable tablet Chew 1 tablet every day by oral route. 08/18 completed Not Available Not Available Not Available Tylenol 325 mg tablet Take 2 tablets every 6 hours by oral route. 06/08 completed Not Available Not Available Not Available hydrochloro thiazide 25 mg tablet 06/08 completed Not Available Not Available Not Available mupirocin 2 % topical ointment 10/29 completed Not Available Not Available Not Available methylpredn isolone 4 mg tablets in a dose pack 04/16 completed Not Available Not Available Not Available itraconazol e 100 mg capsule TAKE 2 CAPSULES BY MOUTH AFTER A MEAL ONCE A DAY 09/18 completed Not Available Not Available Not Available oxycodone 5 mg tablet Take 1 tablet every 4-6 hours by oral route as needed. 09/17 completed Not Available Not Available Not Available amiodarone 100 mg tablet active Not Available Not Available Not Available etodolac 09/18 completed Not Available Not Available Not Available methocarbam ol 09/18 completed Not Available Not Available Not Available amlodipine 09/18 completed Not Available Not Available Not Available Tylenol 07/23 completed Not Available Not Available Not Available Hctz/Reserp ine/Hydrala zine 09/18 completed Not Available Not Available Not Available FreeStyle Lite Meter kit 09/17 completed Not Available Not Available Not Available FreeStyle Lite Strips TEST ONE TO TWO TIMES DAILY DIRECTED active Not Available Not Available No t Available Eliquis 5 mg tablet 06/08 completed Not Available Not Available Not Available aspirin 81 mg capsule Take 1 capsule every day by oral route. active Not Available Not Available No t Available Vitals Date Recorded Body height Body mass index (BMI) Body weight Provider Name and Address Organization Details Last Updated DateTime 06/10/2023 185.42 cm 35 kg/m2 346412.98 g Bindu Ortega [facility] 06/10/2023 12:22:13 Date Recorded Body height Body mass index (BMI) Body weight Provider Name and Address Organization Details Last Updated DateTime 07/01/2023 185.42 cm 35 kg/m2 471063.98 g Tiffanie Dempsey [facility] 07/01/2023 14:31:26 Date Recorded Body height Body mass index (BMI) Body weight Provider Name and Address Organization Details Last Updated DateTime 08/19/2023 185.42 cm 34.7 kg/m2 950577.79 g Kika Winters [facility] 08/19/2023 09:55:00 Date Recorded Body height Provider Name an d Address Organization Details Last Updated DateTime 11/18/2023 185.42 cm Radha Maier [facility] 11/18/2023 10:52:32 Date Recorded Body height Provider Name an d Address Organization Details Last Updated DateTime 06/08/2024 185.42 cm Eron Helen [facility] 06/08/2024 15:41:04 Social History Question Answer Notes LastModified by Organizat ion Details LastModified Time Tobacco Smoking Status Never Smoker Bindu Jordan sapp [facility] 02/06/2023 09:57:42 What Is Your Level Of Alcohol Consumption? Moderate Information not available 09/18/2021 How Many Times Per Week Do You Consume Alcohol? Less Than 1 Time Per Week [email or web address] Information not available 02/06/2023 What Is Your Level Of Caffeine Consumption? Moderate Information not available 09/18/2021 Do You Or Have You Ever Used E-cigarettes Or Vape? Never Used Electronic Cigarettes Information not available 09/18/2021 What Is Your Occupation? Retired Information not available 09/18/2021 Do You Or Have You Ever Used Smokeless Tobacco? Never Used Smokeless Tobacco Information not available 02/06/2023 How Much Tobacco Do You Smoke? No [email or web address] Information not available 02/06/2023 How Many Years Have You Smoked Tobacco? 0 Information not available 09/18/2021 Sex: Unknown Functional Status Question Answer Note LastModified by Organization D etails LastModified Time What is your exercise level? None Information not available 09/18/2021 Mental Status None recorded. Family History Relationship Description Onset Age of this Age Resolved Age Notes LastModified by Organization Details LastModified Time Father No current problems or disability [email or web address] Not available 06/06 09:29:09 Mother No current problems or disability [email or web address] Not available 06/06 09:29:09 Medical History Condition Response HIV or AIDS N High Blood Pressure N MRSA N Weight Gain / Loss N Angina, Heart Failure or Attack N Night Sweats N Osteoarthritis / Rheumatoid arthritis / Other N Cancer N Stroke N Visual Loss or Glaucoma N Heart Problems Y Emphysema / Chronic Bronchitis N Reaction to General/Local Anesthesia N Hepatitis / Jaundice N Kidney / Bladder Infections N Bleeding Disorder N Chemical Dependency / Alcoholism N Thyroid Disorder N Pulmonary Embolism N Irregular Heartbeat Y Any Other Significant Medical Issues Y Hearing Loss N Seizures / Epilepsy N Ulcer / Stomach Bleeding / Indigestion N Blood Clots / Phlebitis N Depression or Anxiety N Diabetes N Psoriasis / Skin Rash N Heart Disease N Asthma / Shortness of Breath / Sleep 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 Immunizations Vaccine Type Date Status Note Provider Nam e and Address Organization Details Recorded Time COVID-19, mRNA, LNP-S, PF, 100 mcg/0.5mL dose or 50 mcg/0.25mL dose 07/03/2020 completed Kateryna sapp [facility] 04/03/2021 13:34:18 COVID-19, mRNA, LNP-S, PF, 100 mcg/0.5mL dose or 50 mcg/0.25mL dose 07/30/2020 completed Kateryna sapp [facility] 04/03/2021 13:34:23 Past Encounters Encounter ID Performer Location Encounter Start Date Encounter Closed Date Diagnosis/Indication Diagnosis SNOMED-CT Code Diagnosis ICD10 Code Diagnosis Note [id number] MARKOS QUINONES MD [facility] Office [address] [place] [address] [id number] 1 04/03/2021 12:08:15 04/03/2021 14:33:00 Osteoarthritis 530671208 M19.071 [id number] Gauri Billy [facility] Office [address] [place] [address] [id number] 1 06/18/2021 08:30:34 06/18/2021 09:31:34 Osteoarthritis 762179850 M19.071 [id number] EV VERMA [facility] Office [address] [address] 06/25/2021 07:38:01 06/27/2021 07:16:27 [id number] EV VERMA [address] [address] 06/25/2021 10:06:00 06/25/2021 16:43:41 Osteoarthritis 834688850 M19.171 Ankle pain 086556490 M25 .571 [id number] MARKOS QUINONES MD [facility] Office [address] [place] [address] [id number] 1 09/18/2021 10:53:33 09/18/2021 12:49:08 Osteoarthritis 440340524 M19.071 Ankle pain 096576355 M25 .571 [id number] EV VERMA [facility] Office [address] [place] [address] [id number] 1 10/18/2021 09:30:04 10/18/2021 10:14:53 Osteoarthritis 205150797 M19.171 Ankle pain 494787931 M25 .571 [id number] EV VERMA [facility] Office [address] [place] [address] [id number] 1 11/29/2021 09:49:01 11/29/2021 16:07:40 Osteoarthritis 653410330 M19.171 Pain of ri ght ankle joint 9202520858 [id number] M25.571 [id number] [facility] Office [address] [place] [address] [id number] 1 12/21/2021 08:50:47 12/21/2021 10:05:37 Osteoarthritis 942575468 M19.171 Ankle pain 656331972 M25 .571 Pseudarthr osis after fusion or arthrodesis 449220333 M96.0 [id number] MARKOS QUINONES MD [facility] Office [address] [place] [address] [id number] 1 02/01/2022 12:29:20 02/01/2022 14:00:46 Osteoarthritis 619948088 M19.602 [id number] JOE FUENTES MD [facility] Office [address] [place] [address] [id number] 1 04/16/2022 10:27:26 04/16/2022 11:46:23 Lumbar radiculopathy 117952422 M54.16 Prolapsed lumbar intervertebral disc 708153167 M51.26 Right L4-5 TF SEGUNDO [id number] EV VERMA [facility] Office [address] [place] [address] [id number] 1 05/17/2022 08:46:20 05/17/2022 10:48:46 Ankle pain 974687237 M25.370 [id number] JOE FUENTES MD [facility] Office [address] [place] [address] [id number] 1 07/23/2022 13:26:54 07/23/2022 14:29:16 Prolapsed lumbar intervertebral disc with sciatica 210714261 M51.16 [id number] JOE FUENTES MD [facility] Office [address] [place] [address] [id number] 7 08/21/2022 15:24:37 08/21/2022 16:22:58 [id number] MARKOS QUINONES MD [facility] Office [address] [place] [address] [id number] 1 09/03/2022 09:11:14 09/03/2022 10:01:02 Osteoarthritis 603298911 M19.071 Ankle pain 510708172 M25 .745 [id number] EV PADILLA [facility] Office [address] [place] [address] [id number] 1 09/17/2022 11:49:57 09/17/2022 12:50:02 Prolapsed lumbar intervertebral disc 290708758 M51.26 [id number] [facility] Office [address] [place] [address] [id number] 1 10/29/2022 12:04:18 10/29/2022 13:46:16 Stenosis of intervertebral foramina 0278146731 09 M99.9 [id number] EV PADILLA [facility] Office [address] [place] [address] [id number] 1 02/06/2023 09:38:11 02/06/2023 16:10:59 Stenosis of intervertebral foramina 5978945934 09 M99.9 [id number] JOE FUENTES MD [facility] Office [address] [place] [address] [id number] 1 02/18/2023 10:04:29 02/18/2023 11:13:29 Stenosis of intervertebral foramina 7581592430 09 M99.9 Degenerati on of lumbar intervertebral disc 48264705 M51.36 [id number] JOE FUENTES MD [facility] Office [address] [place] [address] [id number] 7 05/07/2023 13:51:26 05/07/2023 15:08:22 Degeneration of lumbar intervertebral disc 39537799 M51.36 Stenosis o f intervertebral foramina 1317717670 09 M99.9 [id number] EV PADILLA [facility] Office [address] [place] [address] [id number] 1 06/10/2023 11:26:51 06/10/2023 14:46:42 Degeneration of lumbar intervertebral disc 20122017 M51.36 [id number] EV PADILLA [facility] Office [address] [place] [address] [id number] 1 07/01/2023 14:12:14 07/01/2023 15:28:10 Degeneration of lumbar intervertebral disc 18267343 M51.36 [id number] JOE FUENTES MD [facility] Office [address] [place] [address] [id number] 1 08/19/2023 09:50:26 08/19/2023 10:22:41 Stenosis of intervertebral foramina 2854160382 09 M99.9 Degenerati on of lumbar intervertebral disc 47365402 M51.36 [id number] EV PADILLA [facility] Office [address] [place] [address] [id number] 1 11/18/2023 10:34:58 11/19/2023 14:37:33 Lumbar facet joint pain [id number] M54.51 [id number] EV [facility] [place] [facility] [address] [place] [id number] 06/08/2024 14:46:09 06/08/2024 16:22:56 Lumbar facet joint pain [id number] M54.51 Health Concerns Section Related Observation LastModified by Organization Detai ls LastModified Time None Recorded Concern Status LastModified by Organization Details LastModified Time None Recorded Advance Directives Directive None Recorded Payers Encounter Date Sequence Insurance Name Policy Number Policy Ozuna Covered Member ID Ozuna Member ID Guarantor Name 06/10/2023 1 [facility] (MEDICARE REPLACEMENT PPO) [id number] Kavon Ho [id number] Kavon Ho 07/01/2023 1 [facility] (MEDICARE REPLACEMENT PPO) [id number] Kavon Ho [id number] Kavon Ho 08/19/2023 1 [facility] (MEDICARE REPLACEMENT PPO) [id number] Kavon Ho [id number] Kavon Ho 11/18/2023 1 [facility] (MEDICARE REPLACEMENT PPO) [id number] Kavon Ho [id number] Kavon Ho 06/08/2024 1 [facility]: MEDICARE PPO BLUE (MEDICARE REPLACEMENT PPO) [id number] Kavon Ho [id number] Kavon Ho Notes Date Note Type Note Provider Name and Address Organization Details Recorded Time 06/10/2023 text/html Mr. Ho present s today for his first POV s/p L3-5 XLIF Posterior Fusion on 05/19/23. Prior to surgery he reported the pain was present in his anterior thigh, predominantly in the lateral aspect, he reported it radiated down into his right anterior jack less frequently. He also reported right sided low back pain. Today Mr. Ho is 3 weeks out from surgery and reports he is doing well overall. He reports his anterior jack pain as well as lateral thigh pain has improved considerably.He endorses improvement in his anterior thigh pain but continues to have cramping there. He is still limted in walking and describes cramping into his bilateral quads which occurs with longer periods of walking. He reports his back fatigues with long periods of standing. He has been using tylenol and cites topical menthol as being very helpful for his low back. He denies any fever or chills, no bowel/bladder dysfunction, numbness/tingling around his penis or scrotum and no progressive weakness. MAGALY JUAREZ, EV [address] [place] [address], [place], [phone] 06/13/2023 12:50:24 07/01/2023 text/html Mr. Ho is 72 y /o male who presents today for his 6 week POV s/p L3-L5 XLIF on 05/19 He previously underwent right L3-4 and L4-5 endoscopic foraminotomies on in August 2022 but was burdened by persistent right anterolateral thigh and anterior jack pain His first POV he reported his anterior jack pain as well as lateral thigh pain has improved considerably. He endorses improvement in his anterior thigh pain but continues to have cramping there. He is still limted in walking and describes cramping into his bilateral quads which occurs with longer periods of walking. He reports his back fatigues with long periods of standing. He has been using tylenol and cites topical menthol as being very helpful for his low back. Today Mr. Ho is over 6 weeks out from surgery and reports that he has regressed since his last office visit after beginning PT. He was doing relatively well up until beginning PT this . He felt all of his symtoms worsened including low back pain and pain into his anterior thighs right>left. He continues to have pain into his anterior thighs L>R described as muscle spasm. His low back limits his ability to walk long distances. His thigh pain worsens with increased activity. Low back pain is constant which is very bothersome to him and makes it difficult for him to sleep, he rarely gets more than 6 hours sleep. Tramadol and muscle relaxants have not been helpful. Tyelnol and topical menthol have been helpful. EV PADILLA [address] [place] [address], [place], [phone], [facility] [place] 07/01/2023 15:38:07 08/19/2023 text/html 05/19/2023 L3-5 X LIF posterior fusion Compared to preop he is feeling much better. He still has spasm type pains primarily cranial to his fusion construct he also is having issues with his right anterior thigh. He describes it as a cramping pain is present occasionally but often enough that is bothersome to him. He denies any weakness. Denies any trouble going up or down stairs. The knee does not buckle or give way on him. JOE FUENTES MD [address] [place] [address], [phone], [facility] [place] 08/19/2023 15:59:35 11/18/2023 text/html Mr. Ho is a 73 y/o male who presents today for his 6 month POV s/p1/ L3-5 XLIF posterior fusion He previously underwent right L3-4 and L4-5 endoscopic foraminotomies on in August 2022 but was burdened by persistent right anterolateral thigh and anterior jack pain. 3 month POV: Compared to preop he is feeling much better. He still has spasm type pains primarily cranial to his fusion construct he also is having issues with his right anterior thigh. He describes it as a cramping pain is present occasionally but often enough that is bothersome to him. He denies any weakness. Denies any trouble going up or down stairs. The knee does not buckle or give way on him. Today Kavon is 6 months out from his XLIF. Kavon reports that PT was not helpful, he reports PT would worsen his right anterior thigh pain. His right anterior thigh is still painful, he reports pain in the form of muscle pain and spasm. He also reports pain continues in his back as well as radiating into his lateral hips posteriorly, left greater than right. He localizes this to midline below his incisions. Driving is an exacerbating factor He struggles to sit or stand for long periods, he can walk but standing stationary is difficult for him. He can only sit for about 5 minutes before developing back pain. Laying down is most comfortable for him. No bowel/bladder dysfunction, no numbness/tingling around his penis, anus or scrotum. EV PADILLA [address] [place] [address], [phone], [facility] 11/19/2023 17:58:58 06/08/2024 text/html Mr. Ho is a 73 y/o male who presents today for his 1 year POV s/p 05/19/2023 L3-5 XLIF posterior fusion He previously underwent right L3-4 and L4-5 endoscopic foraminotomies on in August 2022 DEANGELO this November Kavon reported that PT was not helpful, he reports PT would worsen his right anterior thigh pain. His right anterior thigh is still painful, he reports pain in the form of muscle pain and spasm. He also reports pain continues in his back as well as radiating into his lateral hips posteriorly, left greater than right. He localizes this to midline below his incisions. Driving is an exacerbating factor He struggles to sit or stand for long periods, he can walk but standing stationary is difficult for him. He can only sit for about 5 minutes before developing back pain. Laying down is most comfortable for him. We sent him for bilateral L5-S1 facet injections in December 2023. Today Kavon reports those injections provided greater than 50% relief of symptoms and his pain was much improved for the next several months. Today he reports that pain has returned to the lumbosacral region. He reports pain is substantial first thing in the morning, he struggles standing to walk citing low back pain. He reports it can improve to a degree with movement but he is not able to bend or lift heavy objects consistently without pain. He reports pain into his right anterior thigh persists. He endorses subjective LE weakness he suspects is s/t deconditioning. He did have a tractor accident this fall which sounds fairly traumatic however he reports he found his back pain was actually improved in the aftermath. Frankincense is helpful for his back pain. EV [address]illa [address] [place], [phone], [facility] 06/09/2024 09:09:43
--- OUTSIDE RECORDS SUMMARY | 2024-07-07 09:50 | XMS_ITS | Encounter Summary ---
Author Organization [facility] Address [address] [place] [address] Care Team Providers Care Hall Tender Name Role Phone Pcp, No Primary Care Provider Unavailabl e Reason for Referral * Imaging (Routine) - Closed Specialty Diagnoses / Procedures Referred By Lina sorenson Referred To Contact Radiology Diagnoses Post-traumatic osteoarthritis, right ankle and foot Effusion, right ankle Pain in right ankle and joints of right foot Stiffness of right ankle, not elsewhere classified Procedures MRI ANKLE RIGHT WO IV CONTRAST Elisabeth Almaguer DPM [address] [place] [address] Phone: tel: fax: [facility] - [facility] [place] Phone: tel: fax: Referral ID Status Reason Start Date Expiration Date V isits Requested Visits Authorized [id number] Closed Perform Procedure 05/24/2021 07/22/2021 1 1 Encounter Details Date Type Department Care Team ([facility] Contact Info) Description 05/24/2021 Ancillary Orders [facility] - [facility] [place] [phone] Elisabeth Almaguer DPM [address] [facility] [address] [place] [address] Post-traumatic osteoarthritis, right ankle and foot; Effusion, right ankle; Pain in right ankle and joints of right foot; Stiffness of right ankle, not elsewhere classified Social History Tobacco Use Types Packs/Day Years [...] AM EST documented as of this encounter Plan of Treatment Not on file documented as of this encounter Results * MRI ANKLE RIGHT WO IV CONTRAST (05/25/2021 11:11 AM EST) Anatomical Region Laterality Modality Ankle Right Magnetic Resonan ce 05/25/2021 11:2 4 AM EST Impressions 05/25/2021 11:43 AM EST 1. ??Severe osteoarthritis of the tibiotalar joint with intra-articular loose bodies and moderate joint effusion. 2. ??Marked tendinosis of the peroneus longus and brevis tendons and tenosynovitis. 3. ??Posterior tibial tendinosis. 4. ??Noninsertional Achilles tendinosis 5. ??Plantar fasciitis. Narrative 05/25/2021 11:43 AM EST CLINICAL HISTORY: Post-traumatic osteoarthritis, right ankle and foot, comment specifically on the degress of osteoarthritis/cartilage degeneration at the tibiotalar joint/ankle joint///Pt/s chronic right ankle pain, hx of surgery, PROTOCOL: Multiplanar T1, T1 SE, T2, FS PD and STIR sequences were obtained. COMPARISON: None. MRI RIGHT ANKLE: FINDINGS: There is intrasubstance signal within the insertional Achilles tendon, tendinosis and trace fluid in the retrocalcaneal bursa. There is a marrow containing plantar calcaneal enthesophyte with focal thickening and intermediate signal within the medial bundle of plantar fascia the os calcis attachment. There is full-thickness loss of the articular cartilage of the tibiotalar joint with 6 mm and smaller subchondral cysts throughout the talar dome and tibial plafond and medial and lateral aspect of the tibiotalar joint. There is a moderate ankle joint effusion with an 11 mm ossicle, possibly adherent Stieda process along the posterior aspect of the talar dome and an 8 mm mm loose body along the anterior aspect of the tibiotalar joint. There is patchy subchondral marrow edema and sclerosis throughout the tibial plafond and talar dome. There is poor visualization of the anterior talofibular ligament. The syndesmotic ligaments are intact. There is diffuse thickening and scarring along the anterior talofibular ligament. The calcaneofibular ligament and posterior talofibular ligament are intact. There is susceptibility artifact along the anterolateral aspect of the ankle anterior to the tip of the fibula, likely due to prior surgery. There is mild enlargement and intrasubstance signal in the inframalleolar portion of the posterior tibial tendon and moderate fluid in the tendon sheath. There is a 3 mm intratendinous ossicle in the inframalleolar portion of the posterior tibial tendon, type I navicular. The extensor tendons are unremarkable. There is marked intrasubstance signal within the peroneus longus and brevis tendons and fluid in the tendon sheath. The facets of the subtalar joint are normally aligned with good preservation of the articular cartilage. No mass in the sinus tarsi. There are punctate foci of extremely low signal and a few patchy foci of hyperintense signal within the calcaneus, enchondroma with prominent chondroid matrix versus less likely bone island. The imaged portion of the tarsal bones are normally aligned. Lisfranc ligament is intact. Procedure Note Urmila Diaz MD - 05/25/2021 CLINICAL HISTORY: Post-traumatic osteoarthritis, right ankle and foot,comment specifically on the degress of osteoarthritis/cartilagedegeneration at the tibiotalar joint/ankle joint///Pt/s chronic rightankle pain, hx of surgery, PROTOCOL: Multiplanar T1, T1 SE, T2, FS PD and STIR sequences wereobtained. COMPARISON: None. MRI RIGHT ANKLE: FINDINGS: There is intrasubstance signal within the insertional Achilles tendon,tendinosis and trace fluid in the retrocalcaneal bursa. There is a marrowcontaining plantar calcaneal enthesophyte with focal thickening andintermediate signal within the medial bundle of plantar fascia the oscalcis attachment. There is full-thickness loss of the articular cartilage of the tibiotalarjoint with 6 mm and smaller subchondral cysts throughout the talar domeand tibial plafond and medial and lateral aspect of the tibiotalar joint.There is a moderate ankle joint effusion with an 11 mm ossicle, possiblyadherent Stieda process along the posterior aspect of the talar dome andan 8 mm mm loose body along the anterior aspect of the tibiotalar joint.There is patchy subchondral marrow edema and sclerosis throughout thetibial plafond and talar dome. There is poor visualization of the anterior talofibular ligament. Thesyndesmotic ligaments are intact. There is diffuse thickening and scarringalong the anterior talofibular ligament. The calcaneofibular ligament andposterior talofibular ligament are intact. There is susceptibilityartifact along the anterolateral aspect of the ankle anterior to the tipof the fibula, likely due to prior surgery. There is mild enlargement and intrasubstance signal in the inframalleolarportion of the posterior tibial tendon and moderate fluid in the tendonsheath. There is a 3 mm intratendinous ossicle in the inframalleolarportion of the posterior tibial tendon, type I navicular. The extensortendons are unremarkable. There is marked intrasubstance signal within theperoneus longus and brevis tendons and fluid in the tendon sheath. The facets of the subtalar joint are normally aligned with goodpreservation of the articular cartilage. No mass in the sinus tarsi. Thereare punctate foci of extremely low signal and a few patchy foci ofhyperintense signal within the calcaneus, enchondroma with prominentchondroid matrix versus less likely bone island. The imaged portion of thetarsal bones are normally aligned. Lisfranc ligament is intact. IMPRESSION: 1. Severe osteoarthritis of the tibiotalar joint with intra-articularloose bodies and moderate joint effusion. 2. Marked tendinosis of the peroneus longus and brevis tendons andtenosynovitis. 3. Posterior tibial tendinosis. 4. Noninsertional Achilles tendinosis 5. Plantar fasciitis. Elisabeth Almaguer DPM IMG MRI PROCEDURES Final R esult documented in this encounter Visit Diagnoses Diagnosis Post-traumatic osteoarthritis, right ankle and foot Effusion, right ankle Pain in right ankle and joints of right foot Stiffness of right ankle, not elsewhere classified Post-traumatic osteoarthritis, right ankle and foot Effusion, right ankle Pain in right ankle and joints of right foot Stiffness of right ankle, not elsewhere classified documented in this encounter Care Teams Hall Tender Relationship Specialty Start Date End Date Pcp, [place] [address] PCP - General 05/24/21 documented as of this encounter
--- OUTSIDE RECORDS SUMMARY | 2024-07-07 09:50 | XMS_ITS | Continuity of Care Document ---
Author Organization [facility] Office Address [address] [place] [phone] Care Team Providers Care Paleologist Name Role Phone ISSAC WRIGHT Primary Care Provider Assessment Encounter Date Assessment Date Assessment LastModified by Organization Details LastModified Time 06/08/2024 06/08/2024 Kavon is a 73-year-old male presents today just over a year out from his L3-5 XLIF posterior fusion on 05/19/[address] Costa. He has been dealing with persistent right [...] this plan, will arrange those injections with [facility] and Kavon was instructed to arrange [...] Appointments None recorded. Lab None recorded. Referral None recorded. Procedures facet joint injection, lumbar (PROC) - Bilateral L5-S1 [id number] [place] [address] ([facility] Scheduling), [address] [place], [address], 17:42:08 Surgeries None recorded. Imaging None recorded. Medication Orders None recorded. Patient TargetsNo targets recorded. Patient InstructionsNo instructions recorded. Reason for Referral None Reported. Problems Name Problem SNOMED Code Status Onset Date Resolution Date Notes Provider Name and Address Organization Details Recorded Time Stenosis of interverte bral foramina 876802907166 Active [address]A [address] [place] [address], [phone] [place] [address] [facility] 13:13:55 Degenerati on of lumbar interverte bral disc 36429646 Active 2022 Not Available [employer] 3 11:42:08 Problem Notes None recorded. Procedures Surgical History Date Name Laterality Status Provider Name and Address Organization Details Recorded Time 08/27/19 23 Orthopaedic Surgery completed Mauro Green [facility] 09/03/2022 09:20:01 08/27/19 23 Orthopaedic Surgery completed Emelia Lemon [facility] 09/17/2022 12:21:11 09/04/19 22 Orthopaedic Surgery completed Kateryna Zuniga [facility] [place] 04/16/2022 11:14:03 05/05/19 17 Orthopaedic Surgery completed Kateryna Zuniga [facility] [place] 04/16/2022 11:13:44 Imaging Results None recorded. Procedure Notes None recorded. Medical Equipment None Reported. Allergies Allergen ID Allergen Name Allergen Category Reaction Reaction Severity Criticality Documentation Date Start Date Code Code System Note Provider Name and Address Organization Details Recorded Time [id number] cyclobenz aprine medicatio n hallucina tions Not available Not available 08/19/2023 97776 RxNorm Kika sapp, JAEL - [facility] 4 09:56:30 Medications Name Sig Start Date [...] t Available Vitals Date Recorded Body height Provider Name an d Address Organization Details Last Updated DateTime 06/08/2024 185.42 cm Eron Cervantes [facility] [place] 06/08/2024 15:41:04 Social History Question Answer Notes LastModified by Organizat ion Details LastModified Time Tobacco Smoking Status Never Smoker Bindu sapp MA [facility] 02/06/2023 09:57:42 What Is Your Level Of Alcohol Consumption? Moderate Information not available 09/18/2021 How Many Times Per Week Do You Consume Alcohol? Less Than 1 Time Per Week Information not available 02/06/2023 What Is Your [...] How Much Tobacco Do You Smoke? No [email or web address] Information not available 02/06/2023 How Many Years [...] Asthma / Shortness of Breath / Sleep Reactor Technician ea (please specify) N Immunizations Vaccine Type Date Status Note Provider Nam e and Address Organization Details Recorded Time COVID-19, mRNA, LNP-S, PF, 100 mcg/0.5mL dose or 50 mcg/0.25mL dose 07/03/2020 completed Kateryna sapp MA - [facility] 04/03/2021 13:34:18 COVID-19, mRNA, LNP-S, PF, 100 mcg/0.5mL dose or 50 mcg/0.25mL dose 07/30/2020 completed Kateryna sapp MA - [facility] 04/03/2021 13:34:23 Past Encounters Encounter ID Performer Location Encounter Start Date Encounter Closed Date Diagnosis/Indication Diagnosis SNOMED-CT Code Diagnosis ICD10 Code Diagnosis Note [id number] EV Padilla [place] [facility] [address] [place] [phone] 06/08/2024 14:46:09 06/08/2024 16:22:56 Lumbar facet joint pain [id number] M54.51 Health Concerns Section Related Observation LastModified by Organization Detai ls LastModified Time None Recorded Concern Status LastModified by Organization Details LastModified Time None Recorded Payers Encounter Date Sequence Insurance Name Policy Number Policy Ozuna Covered Member ID Ozuna Member ID Guarantor Name 06/08/2024 1 [facility]: [place] PPO BLUE (MEDICARE REPLACEMENT PPO) [id number] Kavon Maddox [id number] Kavon Maddox Notes Date Note Type Note Provider Name and Address Organization Details Recorded Time 06/08/2024 text/html Mr. Maddox is a 73 y/o male who presents [...] helpful for his back pain. EV Padilla [address] [place] [address], [phone], [facility] 06/09/2024 09:09:43
--- OUTSIDE RECORDS SUMMARY | 2024-07-07 09:51 | XMS_ITS | Patient Health Record ---
Author Organization [facility] Address [address] [facility] [address] [facility] [place] [address] Care Team Providers Care Pediatric Associate Name Role Phone Kasia Brock Primary Care Provider Unavailabl e Allergies Allergen (clinical drug ingredient) Drug/Non Drug Allergy documented on EMR Reaction Allergy Type Onset Date Status gabapentin Gabapentin Unknown Drug Allergy Activ e pregabalin Lyrica Unknown Drug Allergy Active Reason For Referral No Information Medications Medication SIG (Take, Route, Frequency, Duration) Notes Start Date End Date Status Zolpidem Tartrate 5 MG 1 tablet at bedti me Orally Once a day Not-Taking traZODone HCl 50 MG 1 tablet at bedtime as needed Orally Once a day Not-Taking Ambien 10 MG 1 tablet at bedtime as needed Orally Once a day Not-Taking Nabumetone 750 MG as directed Orally Not-Taking Lidoderm 5 % 1 patch remove after 12 hours Externally Once a day Not-Taking Revatio 20 MG 1 tablet Orally Once a day Not-Taking Itraconazole 100 MG 2 capsules after libia l Orally Once a day for 90 Not-Taking Itraconazole 100 MG 2 capsules after libia ls Orally Once a day for 30 days 05/25/2021 Active Anusol-HC 25 MG 1 suppository Rectal Three times a day Not-Taking Sulfacetamide Sodium 10 % 1 drop into af fected eye Ophthalmic every 6 hrs Not-Taking Ibuprofen 200 MG 1 tablet with food o r milk as needed Orally Three times a day Not-Taking hydroCHLOROthiazide 25 MG 1 tablet in th e morning Orally Once a day Active Proctofoam HC 1-1 % 1 application Externally Three times a day Not-Taking amLODIPine Besylate 10 MG 1 tablet Orall y Once a day Active Lotrisone Not-Taking Viagra 100 MG 1 tablet as needed Orally as directed Not-Taking Androderm 4 MG/24HR 1 patch to skin at bedtime Transdermal Once a day Not-Taking Problems Problem Type SNOMED Code ICD Code Onset Dates Problem Status W/U Status Risk Notes Problem [id number] 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) Active confirmed Problem [id number] 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 Plan Of Treatment Pending Test Test Name Order Date DRAIN/INJECT, INTERMEDIATE JOINT/BURSA 0 05/24/2020 DRAIN/INJECT, INTERMEDIATE JOINT/BURSA 0 11/22/2020 DRAIN/INJECT, INTERMEDIATE JOINT/BURSA 0 12/28/2020 HEPATIC FUNCTION PANEL 02/16/2020 Insurance Providers Payer Name Payer Address Payer Phone Subscriber Number Group Number Insured Name Patient Relationship to Insured Coverage Start Date Coverage End Date [facility] [address] [place] [address] [phone] [id number] Kavon Maddox Self - patient is the insured [employer] [place] [address] [place] [phone] [id number] Kavon Maddox Self - patient is the insured Medications Administered Medication Instructions Date of Administration Dosage Notes Dexamethasone 05/24/2020 0.5 mL Dexamethasone 11/22/2020 0.5 mL Dexamethasone 12/28/2020 0.5 mL Kenalog 05/24/2020 0.5 mL Kenalog 11/22/2020 0.5 mL Kenalog 12/28/2020 0.5 mL Medical (General) History Medical History History ICD Code Hypertension Arthritis lower back pain polycythemia vera Surgical History Surgery Date(Month/Year) reconstruction right foot 2017 reconstruction pelvis 2013
== END 2024-07-07 09:02 | disposition home or self-care (01) ==
LOC: HO.BBR 09:01
PROVIDERS: Visit Provider Internal Medicine Hematology & Oncology
DX: D45 Polycythemia vera (principal)
CPT/HCPCS: 85018

== ENCOUNTER 2024-10-25 | Outpatient (REF) | payer MEDICARE, SELFPAY ==
--- OUTSIDE RECORDS SUMMARY | 2024-11-25 10:58 | XMS_ITS | Encounter Summary ---
Author Organization [facility] Address [address] [place] [address] Care Team Providers Care Real Estate Utilization Officer Name Role Phone Brennan Pearson MD Primary Care Provider Jean Carlos Castanon Unavailable Encounter Details Date Type Department Care Team (Late st Contact Info) Description 07/16/2022 Telephone [facility] [address] [facility] [address] [place] [address] Swati Schilling PAAlanaC [address] [address] Social History Tobacco Use Types Packs/Day Years Used Date Smoking Tobacco: Unknown Sex and Gender Information Value Date Recorded Sex Assigned at Not on file Legal Sex Male 7:51 PM EST Gender Identity Not on file Sexual Orientation Not on file documented as of this encounter Plan of Treatment Not on file documented as of this encounter Visit Diagnoses Not on filedocumented in this encounter Care Teams Real Estate Utilization Officer Relationship Specialty Start Date End Date Brennan Pearson MD [address] [place] [address] [address] [place] [address] PCP - General Family Medicine 04/08/22 Jean Carlos Castanon PA [address] [place] [address] [address] [place] [address] 05/28/22 Dr. David Travis Staffing Analyst 04/08/22 documented as of this encounter
--- OUTSIDE RECORDS SUMMARY | 2024-11-25 10:59 | XMS_ITS | Data Portability ---
Author Organization ID - [facility], [facility] - INPATIENT Address [address] [place] [address] Care Team Providers Care Electron Gun Inspector Name Role Phone ISSAC WRIGHT Primary Care Provider [phone] Assessment Encounter Date Assessment Date Assessment LastModified by Organization Details LastModified Time 07/01/2023 07/01/2023 Mr. Ho present s today [...] and had all questions and concerns addressed. [email or web address] Not available 07/01/2023 15:37:58 08/19/2023 08/19/2023 3-month [...] and had all questions and concerns addressed. [email or web address] Not available 11/19/2023 17:58:03 06/08/2024 06/08/2024 Kavon [...] this plan, will arrange those injections with [facility] and Kavon was instructed to arrange follow-up with our office approximately 2 weeks afterwards to discuss the efficacy of those injections. He was in agreement with this plan, had all questions and concerns addressed. [email or web address] Not available 06/09/2024 08:17:44 07/16/2024 07/16/2024 Kavon is a 73 y/o male who presents via for follow up He is s/p L3-5 XLIF posterior fusion on 05/19/[address] Fuentes He has persistant right anterior thigh pain since surgery which has been continuously burdensome however he feels he can live with those symtpoms. More bothersome as of late has been axial low back pain. He did well with previous L5-S1 facet injections bilaterally however recent submission for repeat injection was denied. Today Kavon describes a recent set back and increase in low back pain which has since responded well to a course of methocarbamol. We discussed options moving forward including seeking repeat facet injections however Kavon would like to hold off and get back enrolled in physical therapy. We will renew his PT script, I asked Kavon to keep me updated but he may follow up on an as needed basis should his symptoms persist or plateau. He was in agreement with this plan and had all questions and concerns addressed. [email or web address] Not available 07/20/2024 06:30:05 Plan of Treatment Reminders Order Date Submit Date Provider Last Modified By Organization Details Last Modified Time Details Appointments None recorded. Lab None recorded. Referral physical therapist referral - Low back pain s/p L3-L5 XLIF May 2023, suspected L5-S1 facet mediated pain 2024 025 [facility] - [place], [facility] [address], [place], [address], 5 03:22:57 Procedures facet joint injection, lumbar (PROC) - Bilateral L5-S1 2024 025 [facility] ([facility]), [address] [place], [address], 5 17:42:08 facet joint injection, lumbar (PROC) - Bilateral L5-S1 lumbar facet injections 2023 024 [facility] ([facility]), [address] [place], [address], 4 09:20:45 Surgeries None recorded. Imaging None recorded. Medication Orders None recorded. Patient TargetsNo targets recorded. Patient Instructions Encounter Date Encounter Id Patient Instructions Last Modified By Organization Details Last Modified Time 08/19/2023 [id number] 3-month follow-u p with Magaly Juarez [email or web address] Not available 08/19/2023 10:46:40 Reason for Referral Physical Therapist Referral for Degeneration of lumbar intervertebral disc Low back pain Low back pain s/p L3-L5 XLIF May 2023, suspected L5-S1 facet mediated pain Referring Physician: Magaly Juarez, Orthopedic Surgery, Encounter Date: 07/16/2024 Results Created Date Observation Date Name Description Value Unit Range Abnormal Flag Note LastModifiedBy Organization Detail LastModifiedTime 12/17/19 24 12/17/2023 fL guide d facet thera peuti c injec tion [facility] Pt Name : Anna HOFLORENCIO Hayes 5 - Date: 1950 Sex: M Locati on : [facility] Visit: [id number] Admit Date: 2023 Date of Servic e: 2023 Exam : FL GUIDED FACET THERAP EUTIC INJECT ION Status : Final Order MD : MAGALY JUAREZ Ord Tel#:( [phone] CC Provid er:, ------ ------ ------ ------ ------ ------ ------ ------ ------ ------ ------ ------ ------ - ADDITI ONAL INDICA TION: Facet arthro sis FLUORO SCOPY TIME: 0.1 minute s CONSEN T: The proced ure was explai alvarado and all questi ons answer ed. Risks discus sed includ e allerg y and infect ion. Inform ed, jazmín romeo consen t was obtain ed. PROCED URE: [...] [facility] [address] [facility], [place], [address], 12/24/2023 09:12:23 Result Notes None recorded. Problems Name Problem SNOMED Code Status Onset Date Resolution Date Notes Provider Name and Address Organization Details Recorded Time Stenosis of interverte bral foramina 444681785889 Active 2022 EV PADILLA [address] [place] [address], [phone] , [facility] 3 13:13:55 Degenerati on of lumbar interverte bral disc 23773290 Active 2022 Not Available [employer] 3 11:42:08 Problem Notes None recorded. Procedures Surgical History Date Name Laterality Status Provider Name and Address Organization Details Recorded Time 08/27/19 23 Orthopaedic Surgery completed Mauro Green [facility] 09/03/2022 09:20:01 08/27/19 23 Orthopaedic Surgery completed Emelia Lemon [facility] 09/17/2022 12:21:11 09/04/19 22 Orthopaedic Surgery completed Kateryna Zuniga [facility] 04/16/2022 11:14:03 05/05/19 17 Orthopaedic Surgery completed Kateryna Zuniga [facility] 04/16/2022 11:13:44 Imaging Results None recorded. Procedure Notes None recorded. Medical Equipment None Reported. Allergies Allergen ID Allergen Name Allergen Category Reaction Reaction Severity Criticality Documentation Date Start Date Code Code System Note Provider Name and Address Organization Details Recorded Time 20370608 cyclobenz aprine medicatio n hallucina tions Not available Not available 08/19/2023 43512 RxNorm Kika sapp [facility] 4 09:56:30 Medications Name Sig Start Date Stop Date Status Note LastModified by Organization Details LastModified Time cyclobenzap rine 10 mg tablet TAKE ONE TABLET BY MOUTH THREE TIMES DAILY NEEDED active Not Available Not Available No t Available methocarbam ol 500 mg tablet Take 2 tablets 4 times a day by oral route. 2024 active Not Available Not Available Not Avai [...] Not Available hydrochloro thiazide 25 mg tablet active Not Available Not Available No t Available mupirocin 2 % topical ointment 10/29 [...] Details Last Updated DateTime 06/08/2024 185.42 cm Erno Cervantes [facility] 06/08/2024 15:41:04 Date Recorded Body height Body mass index (BMI) Body weight Provider Name and Address Organization Details Last Updated DateTime 07/01/2023 185.42 cm 35 kg/m2 876387.98 g Tiffanie Dempsey [facility] 07/01/2023 14:31:26 Date Recorded Body height Provider Name an d Address Organization Details Last Updated DateTime 07/16/2024 185.42 cm EV Padilla [address] [place], [address] 07/16/2024 11:55:56 Date Recorded Body height Body mass index (BMI) Body weight Provider Name and Address Organization Details Last Updated DateTime 08/19/2023 185.42 cm 34.7 kg/m2 976611.79 g Kika Winters [facility] 08/19/2023 09:55:00 Date Recorded Body height Provider Name an d Address Organization Details Last Updated DateTime 11/18/2023 185.42 cm Radha Maier [facility] 11/18/2023 10:52:32 Social History Question Answer Notes LastModified by Organizat ion Details LastModified Time Tobacco Smoking Status Never Smoker Bindu sapp [facility] 02/06/2023 09:57:42 What Is Your Level Of Caffeine Consumption? Moderate Information not available 09/18/2021 How Much Tobacco Do You Smoke? No [email or web address] Information not available 02/06/2023 How Many Years Have You Smoked Tobacco? 0 Information not available 09/18/2021 Sex: Unknown Functional Status Question Answer Note LastModified by Organizat ion Details LastModified Time How many times per week do you consume alcohol? Less than 1 time per week [email or web address] Information not available 02/06/2023 What is your level of alcohol consumption? Moderate Information not available 09/18/2021 Do you or have you ever used smokeless tobacco? Never used smokeless tobacco [email or web address] Information not available 02/06/2023 What is your occupation? Retired Information not available 09/18/2021 Do you or have you ever used e-cigarettes or vape? Never used electronic cigarettes Information not available 09/18/2021 What is your exercise level? None Information not available 09/18/2021 Mental Status None recorded. Family History Relationship Description Onset Age of this Age Resolved Age Notes LastModified by Organization Details LastModified Time Father No current problems or disability [email or web address] Not available 06/06 09:29:09 Mother No current problems or disability [email or web address] Not available 06/06 09:29:09 Medical History Condition Response Blood Clots / Phlebitis N Heart Problems Y HIV or AIDS N Depression or Anxiety N High Blood Pressure N Irregular Heartbeat Y MRSA N Any Other Significant Medical Issues Y Emphysema / Chronic Bronchitis N Reaction to General/Local Anesthesia N Weight Gain / Loss N Hepatitis / Jaundice N Kidney / Bladder Infections N Diabetes N Bleeding Disorder N Hearing Loss N Angina, Heart Failure or Attack N Night Sweats N Seizures / Epilepsy N Osteoarthritis / Rheumatoid arthritis / Other N Cancer N Stroke N Chemical Dependency / Alcoholism N Ulcer / Stomach Bleeding / Indigestion N Visual Loss or Glaucoma N Thyroid Disorder N Psoriasis / Skin Rash N Heart Disease N Pulmonary Embolism N Asthma / Shortness of Breath / Sleep Radioisotope Technician ea (please specify) N Immunizations Vaccine Type Date Status Note Provider Nam e and Address Organization Details Recorded Time COVID-19, mRNA, LNP-S, PF, 100 mcg/0.5mL dose or 50 mcg/0.25mL dose 07/03/2020 completed Kateryna sapp [place] - [facility] 04/03/2021 13:34:18 COVID-19, mRNA, LNP-S, PF, 100 mcg/0.5mL dose or 50 mcg/0.25mL dose 07/30/2020 [facility] 04/03/2021 13:34:23 Past Encounters Encounter ID Performer Location Encounter Start Date Encounter Closed Date Diagnosis/Indication Diagnosis SNOMED-CT Code Diagnosis ICD10 Code Diagnosis Note [id number] MARKOS QUINONES MD [facility] Office [address] [place] [id number] 1 04/03/2021 12:08:15 04/03/2021 14:33:00 Osteoarthritis 070806668 M19.071 [id number] MARKOS QUINONES MD [facility] Office [address] [place] [id number] 1 06/18/2021 08:30:34 06/18/2021 09:31:34 Osteoarthritis 359836438 M19.071 [id number] EV VERMA [facility] Office [address] [place] [phone] 6 06/25/2021 07:38:01 06/27/2021 07:16:27 [id number] EV VERMA [address] [address] 06/25/2021 10:06:00 06/25/2021 16:43:41 Osteoarthritis 368794389 M19.171 Ankle pain 165684004 M25 .571 [id number] MARKOS QUINONES MD [facility] Office [address] [place] [id number] 1 09/18/2021 10:53:33 09/18/2021 12:49:08 Osteoarthritis 949645375 M19.071 Ankle pain 271756083 M25 .571 [id number] EV VERMA [facility] Office [address] [place] [id number] 1 10/18/2021 09:30:04 10/18/2021 10:14:53 Osteoarthritis 928900256 M19.171 Ankle pain 074849701 M25 .571 [id number] EV VERMA [facility] Office [address] [place] [id number] 1 11/29/2021 09:49:01 11/29/2021 16:07:40 Osteoarthritis 150377998 M19.171 Pain of ri ght ankle joint 9149435889 1901661 M25.571 [id number] EV VERMA [facility] Office [address] [place] [id number] 1 12/21/2021 08:50:47 12/21/2021 10:05:37 Osteoarthritis 407549556 M19.171 Ankle pain 256136287 M25 .571 Pseudarthr osis after fusion or arthrodesis 006859958 M96.0 [id number] MARKOS QUINONES MD [facility] Office [address] [place] [id number] 1 02/01/2022 12:29:20 02/01/2022 14:00:46 Osteoarthritis 452916359 M19.506 [id number] JOE FUENTES MD [facility] Office [address] [place] [address] [id number] 1 04/16/2022 10:27:26 04/16/2022 11:46:23 Lumbar radiculopathy 686158975 M54.16 Prolapsed lumbar intervertebral disc 455278961 M51.26 Right L4-5 TF SEGUNDO [id number] EV VERMA [facility] Office [address] [place] [id number] 1 05/17/2022 08:46:20 05/17/2022 10:48:46 Ankle pain 560615757 M25.937 [id number] EV PADILLA [facility] Office [address] [place] [id number] 1 07/23/2022 13:26:54 07/23/2022 14:29:16 Prolapsed lumbar intervertebral disc with sciatica 607940503 M51.16 [id number] JOE FUENTES MD [facility] Office [address] [id number] 08/21/2022 15:24:37 08/21/2022 16:22:58 [id number] MARKOS QUINONES MD [facility] Office [address] [place] [address] [id number] 1 09/03/2022 09:11:14 09/03/2022 10:01:02 Osteoarthritis 184962168 M19.071 Ankle pain 810684458 M25 .093 [id number] EV PADILLA [facility] Office [address] [place] [address] [id number] 1 09/17/2022 11:49:57 09/17/2022 12:50:02 Prolapsed lumbar intervertebral disc 717612930 M51.26 [id number] EV PADILLA [facility] Office [address] [place] [id number] 1 10/29/2022 12:04:18 10/29/2022 13:46:16 Stenosis of intervertebral foramina 0227403183 09 M99.9 [id number] EV PADILLA [facility] Office [address] [place] [id number] 1 02/06/2023 09:38:11 02/06/2023 16:10:59 Stenosis of intervertebral foramina 0121747030 09 M99.9 [id number] JOE FUENTES MD [facility] Office [address] [place] [address] [id number] 1 02/18/2023 10:04:29 02/18/2023 11:13:29 Stenosis of intervertebral foramina 4631383187 09 M99.9 Degenerati on of lumbar intervertebral disc 18374241 M51.36 [id number] JOE FUENTES MD [facility] Office [address] [address] 05/07/2023 13:51:26 05/07/2023 15:08:22 Degeneration of lumbar intervertebral disc 41226435 M51.36 Stenosis o f intervertebral foramina 1771735894 09 M99.9 [id number] EV PADILLA [facility] Office [address] [place] [id number] 1 06/10/2023 11:26:51 06/10/2023 14:46:42 Degeneration of lumbar intervertebral disc 26517575 M51.36 [id number] EV PADILLA [facility] Office [address] [place] [id number] 1 07/01/2023 14:12:14 07/01/2023 15:28:10 Degeneration of lumbar intervertebral disc 21820987 M51.36 [id number] JOE FUENTES MD [facility] Office [address] [place] [address] [id number] 1 08/19/2023 09:50:26 08/19/2023 10:22:41 Stenosis of intervertebral foramina 3753361394 09 M99.9 Degenerati on of lumbar intervertebral disc 67448597 M51.36 [id number] EV PADILLA [facility] Office [address] [place] [id number] 1 11/18/2023 10:34:58 11/19/2023 14:37:33 Lumbar facet joint pain 464034205 M54.51 [id number] EV Padilla [place] [facility] [address] [facility], [address] [place] [address] 06/08/2024 14:46:09 06/08/2024 16:22:56 Lumbar facet joint pain 748173119 M54.51 [id number] EV Padilla [place] [facility] [address] [facility], [address] [place] [address] 07/16/2024 11:55:24 07/22/2024 10:00:46 Degeneration of lumbar intervertebral disc 45502231 M51.360 Health Concerns Section Related Observation LastModified by Organization Detai ls LastModified Time None Recorded Concern Status LastModified by Organization Details LastModified Time None Recorded Advance Directives Directive None Recorded Payers Insurance Date Sequence Insurance Name Policy Number Policy Ozuna Covered Member ID Ozuna Member ID Guarantor Name 07/22/2024 1 [place] (MEDICARE REPLACEMENT PPO) [id number] Kavon Null Tan [id number] Kavon Ho 03/26/2021 1 [place] Kavon Ho [id number] Kavon Tan 02/20/2021 2 A[employer] (MEDICARE SUPPLEMENT) Kavon Tan [id number] Kavon Ho 06/07/2021 1 [facility] (MEDICARE REPLACEMENT/AD VANTAGE - PPO) [id number] Kavon Ho [id number] Kavon Ho Notes Date Note Type Note Provider Name and Address Organization Details Recorded Time 07/01/2023 text/html Mr. Ho is 72 y/o male who presents today for his [...] topical menthol have been helpful. EV PADILLA [address] [place] [address], [place], [phone], [facility] 07/01/2023 15:38:07 08/19/2023 text/html 05/19/2023 L3-5 XLIF posterior fusion Compared to preop he is [...] give way on him. JOE FUENTES MD [address] [place], [phone], [facility] 08/19/2023 15:59:35 11/18/2023 text/html Mr. Ho is [...] his penis, anus or scrotum. EV PADILLA [address] [place] [address], [phone], [facility] - [facility] 11/19/2023 17:58:58 06/08/2024 text/html Mr. Ho is [...] helpful for his back pain. EV Padilla [address] [place] [address], [phone], [facility] 06/09/2024 09:09:43 07/16/2024 text/html Kavon is a 73-year-old male presents today for follow up. He is s/p L3-5 XLIF posterior fusion on 05/19/[address] Fuentes.He had been dealing with persistent right anterior thigh pain as well as diffuse low back pain. He participated in physical therapy which she felt worsened his thigh pain. We arranged for bilateral L5-S1 facet injections this December which she reports gave him greater than 50% relief of his low back pain.Seen 06/08 reporting that his pain was much improved throughout much of the fall, he notes insidious progression of low back pain over the last several months he describes this as a stiffness worse in the morning that can improve with movement throughout the day however he continues to be limited in bending and lifting. Today Kavon follows up, his injections were denied at L5-S1. His back pain flared considerably on 07/09, he responded quite well to methocarbamol and reports symptoms have settled back down to his baseline low back pain. He has stiffness in his low back and cites lack of range of motion in rotation. He also still has sever right anterior thigh pain however he feels he is able to live with that at this point. Frankincense is very helpful for him. This visit was conducted as a real time interactive audio/visual telehealth visit conducted via [employer] The patient was identified by name and date of and consented to this telehealth visit. The patient was at their home in [place] and I was at my Home in [place]. Participants of the telehealth visit included myself and the patient . The patient was last seen for an office visit on 06/08/2024. This visit was done over the course of 30 minutes including record review. EV Padilla [address] [place] [address], [phone], [facility] 07/20/2024 06:30:07
--- OUTSIDE RECORDS SUMMARY | 2024-11-25 10:59 | XMS_ITS | Encounter Summary ---
Author Organization [facility] Address [address] [place] [address] Care Team Providers Care Fire Investigation Manager Name Role Phone Pcp, No Primary Care [...] WO IV CONTRAST Elisabeth Almaguer DPM [address] [place] [address] Phone: tel: fax: [facility] - [facility] [place] Phone: tel: fax: Referral ID Status Reason Start Date Expiration Date V isits Requested Visits Authorized [id number] Closed Perform Procedure 05/24/2021 07/22/2021 1 1 Encounter Details Date Type Department Care Team ([facility] Contact Info) Description 05/24/2021 Ancillary Orders [facility] - [facility] [place] [phone] Elisabeth Almaguer DPM [address] [facility] [address] [place] [address] Post-traumatic osteoarthritis, right ankle and foot; Effusion, [...] EST Impressions 05/25/2021 11:43 AM EST 1. Severe osteoarthritis of the tibiotalar joint with intra-articular loose bodies and moderate joint effusion. 2. Marked tendinosis of the peroneus longus and brevis tendons and tenosynovitis. 3. Posterior tibial tendinosis. 4. Noninsertional Achilles tendinosis 5. Plantar fasciitis. Narrative 05/25/2021 11:43 AM EST CLINICAL [...] classified documented in this encounter Care Teams Fire Investigation Manager Relationship Specialty Start Date End Date Pcp, [place] [address] PCP - General 05/24/21 documented as of this encounter
--- OUTSIDE RECORDS SUMMARY | 2024-11-25 10:59 | XMS_ITS ---
Author Name [facility] Organization Unknown Results Test Name/Text Value Interpretation Date Range Source Troponin I SerPl HS-mCnc 7.0 ng/L Normal 09/28/2023 0 - 20 [facility] SODIUM [facility]PL SCNC 137.0 mmol/L Normal 09/28/2023 135 - 14 5 [facility] ANION GAP SERPL SCNC 10.0 mmol/L Normal 09/28/2023 5 - 14 [facility] HCO3 SER SCNC 26.0 mmol/L Normal 09/28/2023 24 - 32 [facility] Glomerular filtration rate/1.73 sq M. predicted 64.0 Normal 09/28/2023 60 - CT[facility]S BUN SERPL MCNC 14.0 mg/dL Normal 09/28/2023 9 - 20 [facility] POTASSIUM SERPL SCNC 3.6 mmol/L Normal 09/28/2023 3.5 - 5.1 [facility] CALCIUM SERPL MCNC 9.1 mg/dL Normal 09/28/2023 8.4 - 10.2 [facility] GLUCOSE SER[facility] MCNC 181.0 mg/dL Normal 09/28/2023 70 - 199 [facility] CHLORIDE SERPL SCNC 101.0 mmol/L Normal 09/28/2023 98 - 107 [facility] CREAT SERPL MCNC 1.2 mg/dL Normal 09/28/2023 0.7 - 1.3 [facility] RSV RNA Nph Ql MILAD+non-probe NEGATIVE Normal 09/28/2023 [facility] FLUBV RNA Nph Ql MILAD+non-probe NEGATIVE Normal 09/28/2023 [facility] Service [facility] XXX-Imp Cepheid GeneXpert (RT-PCR) [facility] Normal 09/28/2023 [facility] FLUAV RNA Nph Ql MILAD+non-probe NEGATIVE Normal 09/28/2023 [facility] SPECIMEN SOURCE XXX NASOPHARYNGEAL Normal 09/28/2023 [facility] NEUTROPHILS NFR BLD AUTO 46.4 % Normal 09/28/2023 44 - 74 [facility] NUCLEATED RBC 0.0 % Normal 09/28/2023 0 - 1 [facility] EOSINOPHIL NO. BLD AUTO 0.2 K/uL Normal 09/28/2023 0 - 0.5 [facility] BASOPHILS NFR BLD AUTO 0.5 % Normal 09/28/2023 0 - 2 [facility] LYMPHOCYTES NFR BLD AUTO 32.5 % Normal 09/28/2023 20 - 48 [facility] BASOPHILS IN BLOOD BY AUTOMATED COUNT 0.0 K/uL Normal 09/28/2023 0 - 0.2 [facility] EOSINOPHIL NFR BLD AUTO 3.3 % Normal 09/28/2023 0 - 6 [facility] IMMATURE GRANULOCYTE, ABSOLUTE 0.02 k/uL Normal 09/28/2023 - 0.1 [facility] NEUTROPHILS NO. BLD AUTO 2.7 K/uL Normal 09/28/2023 1.8 - 7.8 [facility] LYMPHOCYTES NO. BLD AUTO 1.9 K/uL Normal 09/28/2023 1 - 3.2 [facility] IMMATURE GRANULOCYTE, PERCENT 0.3 % Normal 09/28/2023 0 - 1 [facility] MONOCYTES NFR BLD AUTO 17.0 % Above high normal 09/28/2023 2 - 12 [facility] MONOCYTES NO. BLD AUTO 1.0 K/uL Above high normal 09/28/2023 0 - 0.8 [facility] RDW RBC AUTO RTO 17.9 % Above high normal 09/28/2023 12.1 - 17.7 [facility] WBC NO. BLD AUTO 5.8 K/uL Normal 09/28/2023 4 - 10.5 CT [facility] PMV BLD AUTO 9.4 fL Normal 09/28/2023 7.4 - 11.4 [facility] HCT VFR BLD AUTO 50.6 % Normal 09/28/2023 40 - [address] [facility] PLATELET NO. BLD AUTO 228.0 K/uL Normal 09/28/2023 150 - 450 [facility] MCH RBC QN AUTO 25.7 pg Normal 09/28/2023 25 - 33 [facility] HGB BLD MCNC 16.2 g/dL Normal 09/28/2023 13.5 - 18 [facility] H MCHC RBC AUTO MCNC 32.0 g/dL Normal 09/28/2023 32 - 36 [facility] RBC NO. BLD AUTO 6.3 M/uL Above high normal 09/28/2023 4.7 - 6 [facility] MCV RBC AUTO 80.3 fL Normal 09/28/2023 78 - 100 [facility] H History of Medication Use Medication Directions Dispensed Refills Start Date End Date Stat us benzonatate (Tessalon Perles) 100 MG capsule Take 1 capsule (100 mg total) by mouth 3 (three) times a day as needed for cough. 09/28/2023 09/28/2023 active glucose blood (FREESTYLE LITE) test strip Test one to two times daily as directed 08/04/2023 active tiZANidine (ZANAFLEX) 2 MG tablet Take 1-2 tablets 3 times per day prn 07/05/2022 active meloxicam (MOBIC) 15 MG tablet Take 15 mg by mouth daily. 06/04/2022 06/05/2023 active amLODIPine (NORVASC) 10 MG tablet amlodipine 10 mg tablet 03/31/2022 active meloxicam (MOBIC) 15 MG tablet 03/25/2022 active methocarbamol (ROBAXIN) 750 MG tablet Take 750 mg by mouth 3 (three) times a day as needed. 02/28/2022 07/05/2022 active aspirin 81 MG chewable tablet Chew 1 tablet (81 mg total) by mouth daily. active metoprolol succinate (TOPROL-XL) 24 hr tablet 100 mg metoprolol succinate ER 100 mg tablet,extended release 24 hr active Allergies Allergen Reaction Severity Comment Documented Date Source Statu s GABAPENTIN ANXIETY tremulous 02/28/2022 [facility] active Problems Problem Status Onset Date Problem Type Date of Resolution Source Viral URI active EncounterDiagnosisAct [facility] Polycythemia vera active 2019-09-16 ProblemAct [facility] Status post ankle fusion active 2021-09-03 ProblemAct [facility] Type 2 diabetes mellitus without complication, without long-term current use of insulin active 2022-07-09 ProblemAct [facility] COVID-19 active 2022-04-23 ProblemAct [facility] Stenosis of intervertebral foramina active 2022-11-15 ProblemAct [facility] Atrial fibrillation active 2021-06-19 ProblemAct [facility] Osteoarthritis active ProblemAct [facility] Lumbosacral spondylosis with radiculopathy active 2022-04-08 ProblemAct [facility] Essential hypertension active 2021-08-14 ProblemAct [facility] Immunizations Vaccine Date Source Lot Number Status Influenza Quad (Fluad) 0.5 m L >65Yrs (A&B ADJUVANTED) 02/28/2022 [facility] [id number] completed Influenza Quad (Fluad) 0.5 m L >65Yrs (A&B ADJUVANTED) 02/23/2021 [facility] [id number] completed Covid-19 (Pfizer) Dilution Required 07/30/2020 [facility] completed Covid-19 (Pfizer) Dilution Required 07/03/2020 [facility] completed Pneumococcal Polysaccharide PPSV23 10/31/2012 [facility] J [id number] completed Encounters Encounter Type Encounter Reason Primary Diagnosis Location Date Emergency Acute upper respiratory infection, unspecified Acute upper respiratory infection, unspecified [facility] 09/28/2023 Ambulatory Hypokalemia Hypokalemia [facility] 2022 Ambulatory Other interverte bral disc displacement, lumbar region [facility] 07/05/2022 Ambulatory Other spondylosi s with radiculopathy, lumbosacral region [facility] 06/21/2022 Ambulatory Other spondylosi s with radiculopathy, lumbosacral region [facility] 06/12/2022 Ambulatory Other interverte bral disc displacement, lumbar region [facility] 05/28/2022 Ambulatory Other spondylosi s with radiculopathy, lumbosacral region [facility] 05/15/2022 Ambulatory Other spondylosi s with radiculopathy, lumbosacral region [facility] 05/02/2022 Ambulatory Other spondylosi s with radiculopathy, lumbosacral region [facility] 04/08/2022 Care Team Organization Name Specialty Phone Email Start Date End Da leigh ann [facility] 09/28/2023 [facility] 12/06/2022 11/16/2024 [facility] 06/202212/04/2022 [facility] 05/02/2022 [facility] 04/08/2022 06/05/19 [facility] 04/08/2022
--- OUTSIDE RECORDS SUMMARY | 2024-11-25 10:59 | XMS_ITS | Clinical Summary ---
Author Organization [facility] Address [address] [place] [address] Care Team Providers Care Retina Subspecialist Name Role Phone Tyler Marin APRN Primary [...] complication, without long-term current use of insulin ([facility]) Test one to two times [...] Alive Maternal Cousin Mother 97 Sister 1 Amrtha Alive Sister 2 Urmila Alive Social History [...] 76 01/30/2024 10:08 AM EDT Temperature 36.4 C (97.5 F) 01/30/2024 10:08 AM EDT Respiratory Rate 18 09/28/2023 7:16 AM EDT [...] - Pfizer risk series) 08/27/2020 07/30/2020, 07/03/2020 BMI Counseling 03/21/2024 03/21/2023, 02/03, 06/19/2021, Additional history exists Depression Screening 03/21/2024 03/21/2023, 03/21/2023, 02/28/2022, Additional history exists Fall Risk Assessment 03/21/2024 03/21/2023, 03/21/2023, 02/28/2022, Additional history exists Preventative Health Evaluation 03/21/2024 03/21/2023, 06/03/2022, 02/28/2022 Hemoglobin A1C Due 03/25/2024 09/23/2023, 0 12/10/2022, 09/09/2022, Additional history exists Influenza Vaccine (#1) 2025 02/28/2022, 2020 RSV Adult > 60+ Yrs or (1 - 1-dose 75+ series) 09/10/2026 Hepatitis B Vaccines Aged Out No long er eligible based on patient's age to complete this topic RSV Ped < 20 months Aged Out No longe r eligible based on patient's age to complete this topic Medical Devices Implanted Type Area Regulatory Coordinator Device Identifier Shelf Expiration Date Model / Serial / Lot Accufill Injectable Bone Substitute Material 3cc - [id number] - [id number] Implanted:Qty: 1 on 12/26/2016 by Ej De Leon DPM [place] [facility] Right: Foot [employer] 10/02/2018 [id number] / / [id number] 1 Kit Sonicanchor 2.5x10mm\Force Fiber #2-0\C-2 - [id number] - [id number] Implanted:Qty: 2 on 12/26/2016 by Ej De Leon DPM [place] [facility] Right: Foot [facility] 07/11/2017 [id number] / / [id number] Care Teams Retina Subspecialist Relationship Specialty Start Date End Date Tyler Marin APRN PCP - General Nurse Practitioner 02/02/24
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
--- OUTSIDE RECORDS SUMMARY | 2024-11-25 10:59 | XMS_ITS | Patient Health Record ---
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 Plan Of Treatment Pending Test Test Name Order Date DRAIN/INJECT, INTERMEDIATE JOINT/BURSA 0 05/24/2020 DRAIN/INJECT, INTERMEDIATE JOINT/BURSA 0 11/22/2020 DRAIN/INJECT, INTERMEDIATE JOINT/BURSA 0 12/28/2020 HEPATIC FUNCTION PANEL 02/16/2020 Insurance Providers Payer Name Payer Address Payer Phone Subscriber Number Group Number Insured Name Patient Relationship to Insured Coverage Start Date Coverage End Date [facility] [address] [place] [address] [phone] [id number] Kavon Maddox Self - patient is the insured [employer] of [place] [address] [place] [phone] [id number] Kavon Maddox Self - patient is the [...]
== END 2024-10-25 00:01 | disposition home or self-care (01) ==
LOC: HO.BBR
PROVIDERS: Visit Provider Internal Medicine Hematology & Oncology
DX: D45 Polycythemia vera (principal)
CPT/HCPCS: 85018

== ENCOUNTER 2024-12-20 08:51 | Outpatient (REF) | payer MEDICARE, SELFPAY ==
--- OUTSIDE RECORDS SUMMARY | 2024-12-20 09:18 | XMS_ITS | Encounter Summary ---
Author Organization [facility] Address [address] [place] [address] Care Team Providers Care Prefitter Name Role Phone Brennan Pearson MD Primary Care Provider Jean Carlos Castanon Unavailable Encounter Details Date Type Department Care Team (Late st Contact Info) Description 07/16/2022 Telephone [facility] [address] [facility] [address] [place] [address] Swati Schilling PAAlanaC [address] [address] Social History Tobacco Use Types Packs/Day Years [...] on filedocumented in this encounter Care Teams Prefitter Relationship Specialty Start Date End Date Brennan Pearson MD [address] [place] [address] [address] [place] [address] PCP - General Family Medicine 04/08/22 Jean Carlos Castanon PA [address] [place] [address] [address] [place] [address] 05/28/22 Dr. David Travis [employer] National Truck Driver 04/08/22 documented as of this encounter
--- OUTSIDE RECORDS SUMMARY | 2024-12-20 09:19 | XMS_ITS | Patient Health Record ---
Author Organization [facility] Address [address] [facility] [address] [facility] [place] [address] Care Team Providers Care Paving Crew Foreman Name Role Phone Kasia Brock Primary Care [...] capsules after libia l Orally Once a day; Duration: 90 Not-Taking Itraconazole 100 MG 2 capsules after libia ls Orally Once a day; Duration: 30 days 05/25/2021 Active Anusol-HC 25 MG [...] Problem Status W/U Status Risk Notes Problem Localized, secondary osteoarthritis of the ankle and/or foot (322860586) 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) Active confirmed Problem 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 Plan Of Treatment Pending Test Test Name Order Date DRAIN/INJECT, INTERMEDIATE JOINT/BURSA 0 05/24/2020 DRAIN/INJECT, INTERMEDIATE JOINT/BURSA 0 11/22/2020 DRAIN/INJECT, INTERMEDIATE JOINT/BURSA 0 12/28/2020 HEPATIC FUNCTION PANEL 02/16/2020 Insurance Providers Payer Name Payer Address Payer Phone Subscriber Number Group Number Insured Name Patient Relationship to Insured Coverage Start Date Coverage End Date [facility] [address] [place] [phone] [id number] Kavon Maddox Self - patient is the insured Medicare of [place] [address] [place] [phone] [id number] Kavon Maddox Self - patient is the [...] Date(Month/Year) reconstruction right foot 2017 reconstruction pelvis 2012
--- OUTSIDE RECORDS SUMMARY | 2024-12-20 09:19 | XMS_ITS | Clinical Summary ---
Author Organization [facility] Address [address] [place] [address] Phone Care Team Providers Care Food Beverage Attendant Name Role Phone Tyler Marin BED SPRING MAKER Primary Care Provider [phone] Allergies Active Allergy Reactions Criticality Noted Date [...] complication, without long-term current use of insulin ([facility] V24, [facility] V28) 07/09/2022 COVID-19 04/23/2022 Lumbosacral spondylosis with radiculopathy 04/08 Essential hypertension 08/14/2021 Overview (06/26/2023): Last Assessment & Plan: Controlled, continue current regimen. Should his heart rate be an issue at any point would discontinue his amlodipine and use diltiazem if needed. Atrial fibrillation ([facility] V24, [facility] V28) 0 06/19/2021 Overview (06/26/2023): Last Assessment [...] get the cardioversion to try. Polycythemia vera ([facility] V24, [facility] V28) Encounters Date Type Department Care Team Description 10/25/2024 Telephone [facility] Hematology Oncology [address] [place] [address] Jalen Hopper MD 10/14/2024 Telephone [facility] Hematology Oncology [address] [place] [address] aJlen Hopper MD from Last 3 Months Immunizations [...] EXTREMITY; Surgeon: Ej De Leon DPM; Location: [facility]; Service: Podiatry; Laterality: Right; ANKLE ARTHROSCOPY W/ ARTHROTOMY 12/26/2016 Right PROCEDURE:ANKLE ARTHROTOMY;COMMENT:Procedure: ARTHROTOMY ANKLE; Surgeon: Ej De Leon DPM; Location: [facility]; Service: Podiatry; Laterality: Right; ANKLE FRACTURE SURGERY 12/26/2016 Right PROCEDURE:ANKLE FRACTURE SURGERY;COMMENT:Procedure: REPAIR STRESS FRACTURE CPT 60605 ; Surgeon: Ej De Leon DPM; Location: [facility]; Service: Podiatry; Laterality: Right; FRACTURE [...] Description 02/09/2025 9:00 AM EDT Office Visit [facility] Hematology Oncology [address] [place] [address] Jalen Hopper MD [address] [place] [address] Health Maintenance Due Date Last [...] V24, CMS/HCC V28) Morbid obesity (CMS/HCC V24, [facility]/HCC V28) Palpitations DEPRESSION SCREENING Routine 03/21/2023 FALLS RISK ASSESSMENT Routine 03/21/2023 from Last 3 Months or Most Recently Relevant to Health Maintenance Results * (ABNORMAL) Lipid panel with reflex to direct LDL (07/30/2024 9:53 AM EDT) [facility] Cholesterol 178 0 - 200 mg/dL LAB CHEMISTRY METHOD 07/30/2024 12:21 PM EDT [facility] Triglycerides 244(H) 0 - 150 mg/dL LAB CHEMISTRY METHOD 07/30/2024 12:21 PM EDT [facility] HDL 28(L) >=40 mg/dL LAB CHEMISTRY METHOD 07/30/2024 12:21 PM EDT [facility] LDL Calculated 101(H) 0 - 100 mg/dL LAB CHEMISTRY METHOD 07/30/2024 12:21 PM EDT [facility] VLDL Cholesterol Anibal 48.8 mg/dL LAB CHEMISTRY METHOD 07/30/2024 12:21 PM EDT [facility] Non HDL Chol. (LDL+VLDL) 150(H) <145 mg/dL LAB CHEMISTRY METHOD 07/30/2024 12:21 PM EDT [facility] Chol/HDL Ratio 6.4(H) 0.0 - 4.4 LAB CHEMISTRY METHOD 07/30/2024 12:21 PM EDT [facility] Blood Venous blood specimen / Unknown Venipuncture / Unknown 07/30/2024 9:53 AM EDT 07/30/2024 11:37 AM EDT us Tyler Marin NP LAB BLOOD ORDERABLES Final Result [facility] [address] [place] [address], * (ABNORMAL) Hemoglobin A1c (07/30/2024 9:53 AM EDT) Hemoglobin A1C 6.9(H) <6.5 % LAB CHEMISTRY METHOD 07/30/2024 1:29 PM EDT [facility] Mean Bld Glu Estim. 151 mg/dL LAB CHEMISTRY METHOD 07/30/2024 1:29 PM EDT [facility] Blood Venous blood specimen / Unknown Venipuncture / Unknown 07/30/2024 9:53 AM EDT 07/30/2024 11:37 AM EDT Tyler Marin BED SPRING MAKER LAB BLOOD ORDERABLES Final Result [facility] [address] [place] [address], * (ABNORMAL) Comprehensive metabolic panel (07/30/2024 9:53 AM EDT) Pathologist [facility] Sodium 137 133 - 145 mmol/L LAB CHEMISTRY METHOD 07/30/2024 12:21 PM [facility] Potassium 3.9 3.5 - 5.5 mmol/L LAB CHEMISTRY METHOD 07/30/2024 12:21 PM [facility] Chloride 105 96 - 110 mmol/L LAB CHEMISTRY METHOD 07/30/2024 12:21 PM [facility] CO2 26 21 - 32 mmol/L LAB CHEMISTRY METHOD 07/30/2024 12:21 PM [facility] Anion Gap 6 3 - 11 LAB CHEMISTRY METHOD 07/30/2024 12:21 PM [facility] Glucose 120(H) 70 - 100 mg/dL LAB CHEMISTRY METHOD 07/30/2024 12:21 PM [facility] BUN 18 5 - 25 mg/dL LAB CHEMISTRY METHOD 07/30/2024 12:21 PM [facility] Creatinine 1.25 0.70 - 1.30 mg/dL LAB CHEMISTRY METHOD 07/30/2024 12:21 PM [facility] eGFR 61 >=60 mL/min/1. 73m2 LAB CHEMISTRY METHOD 07/30/2024 12:21 PM [facility] Comment:Calculation based on the Chronic Kidney Disease Epidemiology Collaboration (CKD-EPI) equation refit without adjustment for race. BUN/Creatinine Ratio 14.4 LAB CHEMISTRY METHOD 07/30/2024 12:21 PM [facility] Calcium 9.5 8.5 - 10.5 mg/dL LAB CHEMISTRY METHOD 07/30/2024 12:21 PM [facility] AST (SGOT) 25 10 - 42 unit/L LAB CHEMISTRY METHOD 07/30/2024 12:21 PM [facility] ALT (SGPT) 44 10 - 60 unit/L LAB CHEMISTRY METHOD 07/30/2024 12:21 PM [facility] Alkaline Phosphatase 65 42 - 121 unit/L LAB CHEMISTRY METHOD 07/30/2024 12:21 PM [facility] Total Protein 7.2 6.0 - 8.0 g/dL LAB CHEMISTRY METHOD 07/30/2024 12:21 PM [facility] Albumin 3.8 3.2 - 5.0 g/dL LAB CHEMISTRY METHOD 07/30/2024 12:21 PM [facility] Total Bilirubin 0.6 0.0 - 1.4 mg/dL LAB CHEMISTRY METHOD 07/30/2024 12:21 PM [facility] Blood Venous blood specimen / Unknown Venipuncture / Unknown 07/30/2024 9:53 AM EDT 07/30/2024 11:37 AM EDT Tyler Marin NP LAB BLOOD ORDERABLES Final Result [facility] [place] [facility] [address] [place] [address], * Falls Risk Assessment (03/21/2023) Falls Risk Assessment abstracted us Historical Provider MD HEALTH MAINTENANCE Final Result * Depression Screening (03/21/2023) HM Depression Screening abstracted us Historical Provider MD HEALTH MAINTENANCE Final Result from Last 3 Months or Most Recently Relevant to Health Maintenance Insurance [facility] Care Teams Food Beverage Attendant Relationship Specialty Start Date End Date Tyler Marin NP [address] [address] PCP - General 02/02/24
--- OUTSIDE RECORDS SUMMARY | 2024-12-20 09:19 | XMS_ITS | Encounter Summary ---
Author Organization [facility] Address [address] [place] [address] Care Team Providers Care Bandoleer Straightener Stamper Name Role Phone Pcp, No Primary Care [...] WO IV CONTRAST Elisabeth Almaguer DPM [address] [place] [address] Phone: tel: fax: [facility] - [facility] [place] Phone: tel: fax: Referral ID Status Reason Start Date Expiration Date V isits Requested Visits Authorized [id number] Closed Perform Procedure 05/24/2021 07/22/2021 1 1 Encounter Details Date Type Department Care Team ([facility] Contact Info) Description 05/24/2021 Ancillary Orders [facility] - [place] [phone] Elisabeth Almaguer DPM [address] [facility] [address] [place] [address] Post-traumatic osteoarthritis, right ankle and foot; Effusion, [...] classified documented in this encounter Care Teams Bandoleer Straightener Stamper Relationship Specialty Start Date End Date Pcp, No [place] [address] PCP - General 05/24/21 documented as of this encounter
--- OUTSIDE RECORDS SUMMARY | 2024-12-20 09:19 | XMS_ITS | Clinical Summary ---
Author Organization [facility] Address [address] [place] [address] Care Team Providers Care Biological Science Technician Name Role Phone Tyler Marin APRN Primary [...] complication, without long-term current use of insulin ([facility]) Test one to two times daily as [...] this topic Medical Devices Implanted Type Area Machine Printer Device Identifier Shelf Expiration Date Model / Serial / Lot [employer] Injectable Bone Substitute Material 3cc - [id number] - [id number] Implanted:Qty: 1 on 12/26/2016 by Ej De Leon DPM [place] [facility] Right: Foot [employer] 10/02/2018 201.030 / / [id number] Kit Sonicanchor 2.5x10mm\Force Fiber #2-0\C-2 - [id number] - [id number] Implanted:Qty: 2 on 12/26/2016 by Ej De Leon DPM at [facility] Right: Foot [employer] 07/11/2017 [id number] / / [id number] Care Teams Biological Science Technician Relationship Specialty Start Date End Date Tyler Marin APRN PCP - General Nurse Practitioner 02/02/24
== END 2024-12-20 08:52 | disposition home or self-care (01) ==
LOC: HO.BBR 08:51
PROVIDERS: Visit Provider Internal Medicine Hematology & Oncology
DX: D45 Polycythemia vera (principal)
CPT/HCPCS: 85018

== ENCOUNTER 2025-02-15 09:46 | Outpatient (REF) | payer MEDICARE, SELFPAY ==
--- OUTSIDE RECORDS SUMMARY | 2025-02-15 10:58 | XMS_ITS | Clinical Summary ---
Author Organization [facility] Address [address] [place] [address] Care Team Providers Care Bpm Analyst Name Role Phone Tyler Marin APRN Primary [...] complication, without long-term current use of insulin ([facility]) Test one to two times daily [...] this topic Medical Devices Implanted Type Area Fur Sewer Device Identifier Shelf Expiration Date Model / Serial / Lot [employer] Injectable Bone Substitute Material 3cc - [id number] - [id number] Implanted:Qty: 1 on 12/26/2016 by Ej De Leon [place] [facility] [place] [facility] [place]: Foot [employer] 10/02/2018 201.030 / / [id number] Kit Sonicanchor 2.5x10mm\Force Fiber #2-0\C-2 - [id number] - [id number] Implanted:Qty: 2 on 12/26/2016 by Ej De Leon DPM [place] [facility] [place] [facility] Right: Foot [facility] 07/11/2017 [id number] / / [id number] Care Teams Bpm Analyst Relationship Specialty Start Date End Date Tyler Marin APRN PCP - General Nurse Practitioner 02/02/24
--- OUTSIDE RECORDS SUMMARY | 2025-02-15 10:58 | XMS_ITS | Clinical Summary ---
Author Organization [facility] Address [address] [place] [address] Care Team Providers Care Credit Rating Checker Name Role Phone Pcp, No Primary Care [...] 1950 FIT-DNA 1951 FIT 1950 FOBT 1950 Sigmoidoscopy 1950 Medicare Annual Wellness Visit 09/10/1969 Tdap and Td Vaccines Adult 09/10/1970 Pneumococcal Vaccine: 50+ Ye ars (1 of 1 - PCV) 09/10/2001 Zoster Vaccines (1 of 2) 09/10/2001 Fall Risk Screening 09/10/2016 COVID-19 Vaccine ( - 2024-2 6 season) 2025 Influenza Vaccine (#1) 2025 RSV 60+ (1 - 1-dose 75+ series) 09/10/2026 HIB Vaccines Aged Out No longer eligi ble based on patient's age to complete this topic HPV Vaccines (No Doses Required) Completed Hepatitis A Vaccines Aged Out No long [...] topic Insurance [employer]IC[employer] Care Teams Credit Rating Checker Relationship Specialty Start Date End Date Pcp, [place] [address] PCP - General 05/24/21
--- OUTSIDE RECORDS SUMMARY | 2025-02-15 10:58 | XMS_ITS | Encounter Summary ---
Author Organization [facility] Address [address] [place] [address] Care Team Providers Care Catering Convention Services Manager Name Role Phone Pcp, No Primary [...] WO IV CONTRAST Elisabeth Almaguer DPM [address] [place] [address] Phone: tel: fax: [facility] - [facility] [place] Phone: tel: fax: Referral ID Status Reason Start Date Expiration Date V isits Requested Visits Authorized [id number] Closed Perform Procedure 05/24/2021 07/22/2021 1 1 Encounter Details Date Type Department Care Team ([facility] Contact Info) Description 05/24/2021 Ancillary Orders [facility] - [place] [phone] Elisabeth Almaguer DPM [address] [facility] [address] [place] [address] Post-traumatic osteoarthritis, right ankle and foot; Effusion, [...] classified documented in this encounter Care Teams Catering Convention Services Manager Relationship Specialty Start Date End Date Pcp, No [place] [address] PCP - General 05/24/21 documented as of this encounter
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
--- OUTSIDE RECORDS SUMMARY | 2025-02-15 10:58 | XMS_ITS | Encounter Summary ---
Author Organization [facility] Address [address] [place] [address] Care Team Providers Care Supervisor Beehive Kiln Name Role Phone Brennan Pearson MD Primary Care Provider Jean Carlos Castanon Unavailable Encounter Details Date Type Department Care Team (Late st Contact Info) Description 07/16/2022 Telephone [facility] [address] [facility] [address] [place] [address] Swati Schilling PAAlanaC [address] [address] Social History Tobacco Use Types Packs/Day Years [...] on filedocumented in this encounter Care Teams Supervisor Beehive Kiln Relationship Specialty Start Date End Date Brennan Pearson MD [address] [place] [address] [place] [address] PCP - General Family Medicine 04/08/22 Jean Carlos Castanon PA [address] [place] [address] [address] [place] [address] 05/28/[address] Dr[address] Mender 04/08/22 documented as of this encounter
--- OUTSIDE RECORDS SUMMARY | 2025-02-15 10:58 | XMS_ITS | Encounter Summary ---
Author Organization [facility] Address [address] [place] [address] Care Team Providers Care Textile Technologist Name Role Phone Pcp, No Primary Care Provider Unavailabl e Encounter Details Date Type Department Care Team (Late st Contact Info) Description 05/24/2021 Procedure Pass [facility] [address] [place], [place] [address] Social History Tobacco Use Types Packs/Day Years [...] on filedocumented in this encounter Care Teams Textile Technologist Relationship Specialty Start Date End Date Pcp, [place] [address] PCP - General 05/24/21 documented as of this encounter
--- OUTSIDE RECORDS SUMMARY | 2025-02-15 10:58 | XMS_ITS | Patient Health Record ---
Author Organization [facility] Address [address] [facility] [address] [facility] [place] [address] Care Team Providers Care Lunchroom Mother Name Role Phone Kasia Brock Primary Care [...] secondary osteoarthritis of the ankle and/or foot ([id number]) 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) Active [...] Insured Coverage Start Date Coverage End Date [facility] and [facility] [address] [place] [address] [phone] [id number] 1 Kavon Maddox Self - patient is the insured Medicare of [place] [address] [place] [phone] [id number] Kavon Maddox Self - patient is the [...]
--- OUTSIDE RECORDS SUMMARY | 2025-02-15 10:58 | XMS_ITS | Encounter Summary ---
Author Organization [facility] Address [address] [place] [address] Care Team Providers Care Ice Cream Machine Operator Name Role Phone Brennan Pearson MD Primary Care Provider Jean Carlos Castanon Unavailable Encounter Details Date Type Department Care Team (Late st Contact Info) Description 05/13/2022 Scanned Document [facility] [address] [facility] [address] [place] [address] Fabian Mayorga PA [address] [facility] [address] [place] [address] Social History Tobacco Use Types Packs/Day Years [...] on filedocumented in this encounter Care Teams Ice Cream Machine Operator Relationship Specialty Start Date End Date Brennan Pearson MD [address] [place] [address] [place] [address] PCP - General Family Medicine 04/08/22 Jean Carlos Castanon PA [address] [place] [address] [address] [place] [address] 05/28/22 Dr. David Travis Rv Servicer 04/08/22 documented as of this encounter
--- OUTSIDE RECORDS SUMMARY | 2025-02-15 10:58 | XMS_ITS | Clinical Summary ---
Author Organization [facility] Address [address] [place] [address] Care Team Providers Care Marble And Granite Polisher Name Role Phone Brennan Pearson MD Primary Care Provider [phone] Jean Carlos Castanon Unavailable Allergies Active Allergy Reactions Criticality Noted Date Comments Gabapentin Anxiety Medium 02/28/2022 tremulous Medications amLODIPine (NORVASC) 10 MG tablet amlodipine 10 mg tablet 2 Active hydrochlorothia zide (HYDRODIURIL) 25 MG tablet 2 Active apixaban (ELIQUIS) 5 MG tablet Eliquis 5 mg tablet Active meloxicam (MOBIC) 15 MG tablet 2 Active acetaminophen (TYLENOL) 650 MG CR tablet Take 650 mg by mouth 3 times daily (every 8 hours) as needed. Active tiZANidine (ZANAFLEX) 2 MG tabletIndicatio ns:Lumbar disc herniation Take 1-2 tablets 3 times per day prn 30 tablet 3 Active Active Problems Problem Noted Date Diagnosed [...] 104 07/05/2022 1:14 PM EST Temperature 36.7 C (98.1 F) 07/05/2022 1:14 PM EST Respiratory Rate 18 07/05/2022 1:14 PM EST Oxygen Saturation 92% 07/05/2022 1:14 PM EST Inhaled Oxygen Concentration - - Weight 122 kg (270 lb) 06/21/2022 2:00 PM EST Height 185.4 cm (6' 1 ) 06/21/2022 2:00 PM EST Body Mass Index 35.62 06/21/2022 2:00 PM EST Plan of Treatment Health Maintenance Due Date Last Done Comments Advance Care Planning 1950 Hepatitis C Virus Screening 1950 DTaP/Tdap/Td Vaccines (1 - Tdap) 09/10/1970 Colonoscopy 09/10/1996 Pneumococcal Vaccines 50+ (1 of 1 - PCV) 09/10/2001 Zoster (Shingles) Vaccine (1 of 2) 09/10/2001 Influenza Vaccine 12/03/2024 02/28/2022, 02/23/2021 COVID-19 Vaccine (3 - 2024-2 6 season) 2025 07/30/2020, 07/03/2020 RSV Vaccine 60 years and older and Patients (1 - 1-dose 75+ series) 09/10/2026 Hepatitis B Vaccines Aged Out No long er eligible based on patient's age to complete this topic Insurance BLUE CROSS [employer] MEDICARE - [id number] Care Teams Marble And Granite Polisher Relationship Specialty Start Date End Date Brennan Pearson MD [address] [facility] [place] [address] PCP - General Family Medicine 04/08/22 Jean Carlos Castanon PA [address] [place] [address] [address] [place] [address] 05/28/22 Dr. David Travis Supervisor Firearms 04/08/22
== END 2025-02-15 09:47 | disposition home or self-care (01) ==
LOC: HO.BBR 09:46
PROVIDERS: Visit Provider Internal Medicine Hematology & Oncology
DX: D45 Polycythemia vera (principal)
CPT/HCPCS: 85018; 99195

== ENCOUNTER 2025-04-12 09:47 | Outpatient (REF) | payer MEDICARE, SELFPAY | END 2025-04-12 09:48 | disposition home or self-care (01) | LOC: HO.BBR 09:47 | PROVIDERS: Visit Provider Internal Medicine Hematology & Oncology | DX: D45 Polycythemia vera (principal) | CPT/HCPCS: 85018; 99195 ==